=== PATIENT | female | born 1995 | race Two or more races ===

== ENCOUNTER 2021-05-05 22:34 | Emergency (ER) | payer OTHER ==
[2021-05-05 22:42] VITALS: BP 148/76
[2021-05-05] MEDS ORDERED: KETOROLAC 15 MG/ML VIAL IVP STA (22:48)
[2021-05-05] MEDS ORDERED: METOCLOPRAMIDE 10 MG/2 ML VIAL IVP STA (22:48)
[2021-05-05] MEDS ORDERED: diphenhydrAMINE INJ 50 MG/ML VIAL IVP STA (22:49)
[2021-05-05] MEDS ORDERED: ACETAMINOPHEN 325 MG TABLET PO STA (22:49)
[2021-05-05 23:06] LABS: BILIRUBIN,URINE NEGATIVE (NEGATIVE); GLUCOSE, URINE (UA) NEGATIVE (NEGATIVE); KETONES,URINE (UA) NEGATIVE (NEGATIVE); LEUKOCYTE ESTERASE, URINE NEGATIVE (NEGATIVE); NITRITE,URINE NEGATIVE (NEGATIVE); OCCULT BLOOD,URINE NEGATIVE (NEGATIVE); PROTEIN,URINE NEGATIVE (NEGATIVE); UROBILINOGEN,URINE 0.2 (NORMAL) E.U./dL (NORMAL)
[2021-05-05 23:08] LABS: BASOPHILS % (AUTO) 0.2 %; EOSINOPHILS # (AUTO) 0.2 10^3/uL (0.0-0.7); EOSINOPHILS % (AUTO) 1.2 %; HCT - HEMATOCRIT 43.9 % (37.0-47.0); HGB - HEMOGLOBIN 14.3 g/dL (12.0-16.0); LYMPHOCYTES # (AUTO) 3.6 10^3/uL (1.5-3.5); LYMPHOCYTES % (AUTO) 27.6 %; MEAN CORPUSCULAR HEMOGLOBIN 27.7 pg (27.0-31.0); MEAN CORPUSCULAR HGB CONC 32.6 g/dL (32.0-36.0); MEAN CORPUSCULAR VOLUME 85.1 fL (81.0-99.0); MEAN PLATELET VOLUME 11.7 fL (7.9-10.8); MONOCYTES # (AUTO) 1.1 10^3/uL (0.0-1.0); MONOCYTES % (AUTO) 8.2 %; NEUTROPHILS # (AUTO) 8.1 10^3/uL (1.5-6.6); NEUTROPHILS % (AUTO) 62.6 %; PLT - PLATELET COUNT 200 10^3/uL (130-450); RED BLOOD COUNT 5.16 10^6/uL (4.20-5.40); RED CELL DISTRIBUTION WIDTH 13.2 % (12.0-15.0); WHITE BLOOD COUNT 12.9 x10^3/uL (4.8-10.8)
[2021-05-05 23:10] LABS: CLARITY,URINE CLEAR (CLEAR); HCG UR QUAL NEGATIVE
[2021-05-05 23:19] LABS: ALBUMIN 4.6 g/dL (3.2-5.5); ALBUMIN/GLOBULIN RATIO 1.5 (1.0-2.2); BILIRUBIN,TOTAL 0.8 mg/dL (0.2-1.0); CALCIUM 9.5 mg/dL (8.5-10.3); CREATININE 0.6 mg/dL (0.4-1.0); POTASSIUM 3.7 mmol/L (3.5-5.0); TOTAL PROTEIN 7.6 g/dL (6.7-8.2)
--- NOTE | 2021-05-06 00:13 | ED Physician Documentation ---
History of Present Illness - Stated complaint Stated Complaint: BODY SHAKES,NAUSEA,HEADACHE - Chief complaint Chief Complaint: Abd Pain - History obtained from History obtained from: Patient - Additonal information Additional information: 26-year-old woman, previously healthy presents with body aches, shaking, headache, nausea, and insomnia for the past 3 days as well as suprapubic discomfort and dysuria. Denies fevers. Patient states she recently moved to new home and has been under stress. Review of Systems Ten Systems: 10 systems reviewed and negative Constitutional: reports: Myalgias, Fatigue. denies: Fever, Chills Neurologic: reports: Headache Psychiatric: reports: Insomnia PD PAST MEDICAL HISTORY - Past Medical History Past Medical History: No - Allergies Allergies/Adverse Reactions: Allergies Allergy/AdvReac Type Severity Reaction Status Date / Time No Known Drug Allergies Allergy Verified 05/05/21 22:39 - Social History Does the pt smoke?: No Smoking Status: Never smoker Does the pt have substance abuse?: No - Immunizations Immunizations are current?: No - POLST Patient has POLST: No PD ED PE NORMAL - Vitals Vital signs reviewed: Yes - General General: Alert and oriented X 3, No acute distress, Well developed/nourished - HEENT HEENT: Atraumatic, PERRL, EOMI - Neck Neck: Supple, no meningeal sign - Cardiac Cardiac: RRR - Respiratory Respiratory: No respiratory distress, Clear bilaterally - Abdomen Abdomen: Non tender, Non distended - Derm Derm: Normal color, Warm and dry - Extremities Extremities: No deformity - Neuro Neuro: Alert and oriented X 3 - Psych Psych: Normal mood, Normal affect Results - Vitals Vitals: Vital Signs - 24 hr 05/05/21 05/06/21 22:39 00:31 Temperature 36.9 C 36.9 C Heart Rate 73 73 Respiratory 16 16 Rate Blood Pressure 148/76 H 148/76 H O2 Saturation 100 100 Oxygen O2 Source Room air - Labs Labs: Laboratory Tests 05/05/21 05/05/21 05/05/21 22:59 22:59 22:59 WBC 12.9 H RBC 5.16 Hgb 14.3 Hct 43.9 MCV 85.1 MCH 27.7 MCHC 32.6 RDW 13.2 Plt Count 200 MPV 11.7 H Neut # (Auto) 8.1 H Lymph # (Auto) 3.6 H [place] # (Auto) 1.1 H Eos # (Auto) 0.2 Baso # (Auto) 0.0 Absolute Nucleated RBC 0.00 Nucleated RBC % 0.0 Sodium 136 Potassium 3.7 Chloride 101 Carbon Dioxide 23 Anion Gap 12.0 BUN 14 Creatinine 0.6 Estimated GFR (MDRD) 122 Glucose 97 Calcium 9.5 Total Bilirubin 0.8 AST 19 ALT 20 Alkaline Phosphatase 47 Total Protein 7.6 Albumin 4.6 Globulin 3.0 Albumin/Globulin Ratio 1.5 Lipase 25 Urine Color YELLOW Urine Clarity CLEAR Urine pH 6.0 Ur Specific [place] 1.020 Urine Protein NEGATIVE Urine Glucose (UA) NEGATIVE Urine Ketones NEGATIVE Urine Occult Blood NEGATIVE Urine Nitrite NEGATIVE Urine Bilirubin NEGATIVE Urine Urobilinogen 0.2 (NORMAL) Ur Leukocyte Esterase NEGATIVE Ur Microscopic Review NOT INDICATED Urine Culture Comments NOT INDICATED Urine HCG, Qual NEGATIVE PD MEDICAL DECISION MAKING - ED course ED course: 26-year-old man presents with insomnia for the past 3 nights as well as nonspecific symptoms. Her work-up in the emergency department is unremarkable. Advised to follow-up with [facility]. Return precautions given. Departure - Departure Disposition: 01 Home, Self Care Clinical Impression: Body aches, Insomnia, Nausea, Headache Condition: Good Instructions: ED Insomnia Comments: You were seen in the emergency department for nausea, insomnia, body shaking, headache, and pain with urination. Your urine test was normal. You are not . You have no emergent findings on your labwork. Please follow up with [facility] this week and return to the emergency department if you have new or worsening symptoms or other concerns. Discharge Date/Time: 05/06/21 00:50
== END 2021-05-06 00:50 | disposition home or self-care (01) ==
LOC: ED 22:34
DX: R11.0 Nausea (principal); R51.9 Headache, unspecified; G47.00 Insomnia, unspecified; R52 Pain, unspecified
CPT/HCPCS: 36415; 80053; 81003; 81025; 83690; 85025; 96374; 96375; 99282; 99283; A9270; J1200; J2765; 81001; 87086

== ENCOUNTER 2021-05-18 13:16 | Emergency (ER) | payer OTHER ==
--- NOTE | 2021-05-18 14:01 | ED Physician Documentation ---
History of Present Illness - Stated complaint Stated Complaint: DIZZYNESS - Chief complaint Chief Complaint: Abd Pain - History obtained from History obtained from: Patient - History of Present Illness Timing: Today Pain level max: 0 Pain level now: 0 - Additonal information Additional information: Patient is a 26-year-old female who presents to the emergency department stating she had blood in the stool x2 over the past 2 weeks. Today she felt lightheaded and dizzy. Near syncopal. She felt like her heart was racing. She now feels normal. Nothing made it better or worse. She states she feels her stomach "moving a lot". Denies any diarrhea or constipation. No nausea or vomiting. Denies any possibility of . Patient is on any blood thinners. Has never had similar symptoms. No recent travel. No antibiotics. No abdominal pain. Review of Systems Constitutional: denies: Fever, Chills Throat: denies: Sore throat Cardiac: denies: Palpitations Respiratory: denies: Cough GI: denies: Abdominal Pain, Vomiting, Diarrhea, Hematemesis Musculoskeletal: denies: Neck pain, Back pain Neurologic: denies: Headache PD PAST MEDICAL HISTORY - Past Medical History Past Medical History: No - Past Surgical History Past Surgical History: No - Allergies Allergies/Adverse Reactions: Allergies Allergy/AdvReac Type Severity Reaction Status Date / Time No Known Drug Allergies Allergy Verified 05/18/21 13:31 - Living Situation Living Situation: reports: With family Living Arrangement: reports: At home - Social History Does the pt smoke?: No Smoking Status: Never smoker Does the pt have substance abuse?: No - Family History Family history: reports: Non contributory - Immunizations Immunizations are current?: No - POLST Patient has POLST: No PD ED PE NORMAL - Vitals Vital signs reviewed: Yes - General General: Alert and oriented X 3, No acute distress - HEENT HEENT: PERRL, Moist mucous membranes, Other (Normal conjunctiva) - Neck Neck: Supple, no meningeal sign - Cardiac Cardiac: RRR, No murmur, Strong equal pulses - Respiratory Respiratory: No respiratory distress, Clear bilaterally - Abdomen Abdomen: Soft, Non tender, Non distended - Female Female : Pt declined - Derm Derm: Warm and dry - Extremities Extremities: No edema, No calf tenderness / cord - Neuro Neuro: Alert and oriented X 3 - Psych Psych: Normal mood, Normal affect Results - Vitals Vitals: Vital Signs - 24 hr 05/18/21 05/18/21 05/18/21 13:27 16:09 16:24 Temperature 36.4 C L 36.9 C Heart Rate 82 88 151 H Respiratory 16 16 42 H Rate Blood Pressure 130/80 107/65 O2 Saturation 100 100 93 Oxygen O2 Source Room air - EKG (time done) 1335 Rate: Rate (enter#) (78) Rhythm: NSR [place]: Normal Intervals: Normal [place] QRS: Normal Ischemia: Normal ST segments - Labs Labs: Laboratory Tests 05/18/21 05/18/21 05/18/21 14:17 14:17 14:51 WBC 8.1 RBC 4.74 Hgb 13.4 Hct 40.1 MCV 84.6 MCH 28.3 MCHC 33.4 RDW 13.2 Plt Count 175 MPV 11.5 H Neut # (Auto) 5.9 Lymph # (Auto) 1.5 [place] # (Auto) 0.6 Eos # (Auto) 0.1 Baso # (Auto) 0.0 Absolute Nucleated RBC 0.00 Nucleated RBC % 0.0 Sodium 137 Potassium 4.0 Chloride 103 Carbon Dioxide 26 Anion Gap 8.0 BUN 14 Creatinine 0.6 Estimated GFR (MDRD) 122 Glucose 107 H Calcium 9.0 Total Bilirubin 0.5 AST 25 ALT 40 Alkaline Phosphatase 42 Total Protein 7.5 Albumin 4.2 Globulin 3.3 Albumin/Globulin Ratio 1.3 Lipase 22 Urine Color Cancelled Urine Clarity Cancelled Urine pH Cancelled Ur Specific [place] Cancelled Urine Protein Cancelled Urine Glucose (UA) Cancelled Urine Ketones Cancelled Urine Occult Blood Cancelled Urine Nitrite Cancelled Urine Bilirubin Cancelled Urine Urobilinogen Cancelled Ur Leukocyte Esterase Cancelled Ur Microscopic Review Cancelled Urine Culture Comments Cancelled Urine HCG, Qual 05/18/21 14:51 WBC RBC Hgb Hct MCV MCH MCHC RDW Plt Count MPV Neut # (Auto) Lymph # (Auto) [place] # (Auto) Eos # (Auto) Baso # (Auto) Absolute Nucleated RBC Nucleated RBC % Sodium Potassium Chloride Carbon Dioxide Anion Gap BUN Creatinine Estimated GFR (MDRD) Glucose Calcium Total Bilirubin AST ALT Alkaline Phosphatase Total Protein Albumin Globulin Albumin/Globulin Ratio Lipase Urine Color YELLOW Urine Clarity CLEAR Urine pH 6.0 Ur Specific [place] 1.020 Urine Protein NEGATIVE Urine Glucose (UA) NEGATIVE Urine Ketones NEGATIVE Urine Occult Blood TRACE-INTA Urine Nitrite NEGATIVE Urine Bilirubin NEGATIVE Urine Urobilinogen 0.2 (NORMAL) Ur Leukocyte Esterase NEGATIVE Ur Microscopic Review NOT INDICATED Urine Culture Comments NOT INDICATED Urine HCG, Qual NEGATIVE PD MEDICAL DECISION MAKING - ED course Complexity details: reviewed results, re-evaluated patient, considered differential, d/w patient ED course: Patient is well-appearing, nontoxic. Afebrile. No significant lab abnormalities. No significant findings on EKG or telemetry. Appears to be hemodynamically stable. Tolerating p.o. without difficulty. We will have her follow-up with her doctor for further care. Patient counseled regarding signs and symptoms for which I believe and urgent re-evaluation would be necessary. Patient with good understanding of and agreement to plan and is comfortable going home at this time This document was made in part using voice recognition software. While efforts are made to proofread this document, sound alike and grammatical errors may occur. Abdomen remains soft, nontender nondistended on serial exam. Departure - Departure Disposition: 01 Home, Self Care Clinical Impression: Blood in stool, Near syncope Condition: Good Instructions: ED Hematochezia Stable, ED Near Syncope Unkn Follow-Up: your,doctor in 1 week for repeat evaluation [Other] Comments: Your testing does not show any acute abnormalities today. Your EKG is normal. Your blood counts are normal. Please follow-up with your doctor for further care. Discharge Date/Time: 05/18/21 16:28
[2021-05-18 14:21] LABS: BASOPHILS % (AUTO) 0.4 %; EOSINOPHILS # (AUTO) 0.1 10^3/uL (0.0-0.7); EOSINOPHILS % (AUTO) 0.9 %; HCT - HEMATOCRIT 40.1 % (37.0-47.0); HGB - HEMOGLOBIN 13.4 g/dL (12.0-16.0); LYMPHOCYTES # (AUTO) 1.5 10^3/uL (1.5-3.5); LYMPHOCYTES % (AUTO) 18.7 %; MEAN CORPUSCULAR HEMOGLOBIN 28.3 pg (27.0-31.0); MEAN CORPUSCULAR HGB CONC 33.4 g/dL (32.0-36.0); MEAN CORPUSCULAR VOLUME 84.6 fL (81.0-99.0); MEAN PLATELET VOLUME 11.5 fL (7.9-10.8); MONOCYTES # (AUTO) 0.6 10^3/uL (0.0-1.0); MONOCYTES % (AUTO) 7.1 %; NEUTROPHILS # (AUTO) 5.9 10^3/uL (1.5-6.6); NEUTROPHILS % (AUTO) 72.4 %; PLT - PLATELET COUNT 175 10^3/uL (130-450); RED BLOOD COUNT 4.74 10^6/uL (4.20-5.40); RED CELL DISTRIBUTION WIDTH 13.2 % (12.0-15.0); WHITE BLOOD COUNT 8.1 x10^3/uL (4.8-10.8)
[2021-05-18 15:10] LABS: BILIRUBIN,URINE NEGATIVE (NEGATIVE); GLUCOSE, URINE (UA) NEGATIVE (NEGATIVE); KETONES,URINE (UA) NEGATIVE (NEGATIVE); LEUKOCYTE ESTERASE, URINE NEGATIVE (NEGATIVE); NITRITE,URINE NEGATIVE (NEGATIVE); OCCULT BLOOD,URINE TRACE-INTA (NEGATIVE); PROTEIN,URINE NEGATIVE (NEGATIVE); UROBILINOGEN,URINE 0.2 (NORMAL) E.U./dL (NORMAL)
[2021-05-18 15:17] LABS: ALBUMIN 4.2 g/dL (3.2-5.5); ALBUMIN/GLOBULIN RATIO 1.3 (1.0-2.2); BILIRUBIN,TOTAL 0.5 mg/dL (0.2-1.0); CREATININE 0.6 mg/dL (0.4-1.0); TOTAL PROTEIN 7.5 g/dL (6.7-8.2)
[2021-05-18 15:20] LABS: CLARITY,URINE CLEAR (CLEAR); HCG UR QUAL NEGATIVE
[2021-05-18 16:09] VITALS: BP 107/65
== END 2021-05-18 16:28 | disposition home or self-care (01) ==
LOC: ED 13:16
DX: K92.1 Melena (principal); R55 Syncope and collapse
CPT/HCPCS: 36415; 80053; 81001; 81003; 81025; 83690; 85025; 87086; 93005; 99283; 99284

== ENCOUNTER 2021-08-07 10:22 | Emergency (ER) | payer OTHER ==
--- NOTE | 2021-08-07 10:54 | XRAY Report ---
PROCEDURE: Chest 1 View X-Ray INDICATIONS: Chest pain TECHNIQUE: One view of the chest was acquired. COMPARISON: None. FINDINGS: Surgical changes and devices: None. Lungs and pleura: No pleural effusions or pneumothorax. Lungs are clear. Mediastinum: Mediastinal contours appear normal. Heart size is normal. Bones and chest wall: No suspicious bony lesions. Overlying soft tissues appear unremarkable. IMPRESSION: No acute cardiopulmonary process demonstrated radiographically. Reviewed by: Juan Francisco Dyer MD on 08/07/2021 10:52 AM [facility] Approved by: Juan Francisco Dyer MD on 08/07/2021 10:52 AM [facility] Station ID: [id number]
[2021-08-07 10:56] LABS: BASOPHILS % (AUTO) 0.2 %; EOSINOPHILS # (AUTO) 0.1 10^3/uL (0.0-0.7); EOSINOPHILS % (AUTO) 1.5 %; HCT - HEMATOCRIT 40.3 % (37.0-47.0); HGB - HEMOGLOBIN 13.4 g/dL (12.0-16.0); LYMPHOCYTES # (AUTO) 1.9 10^3/uL (1.5-3.5); LYMPHOCYTES % (AUTO) 21.6 %; MEAN CORPUSCULAR HEMOGLOBIN 28.3 pg (27.0-31.0); MEAN CORPUSCULAR HGB CONC 33.3 g/dL (32.0-36.0); MEAN CORPUSCULAR VOLUME 85.2 fL (81.0-99.0); MEAN PLATELET VOLUME 10.9 fL (7.9-10.8); MONOCYTES # (AUTO) 0.6 10^3/uL (0.0-1.0); MONOCYTES % (AUTO) 6.7 %; NEUTROPHILS # (AUTO) 6.1 10^3/uL (1.5-6.6); NEUTROPHILS % (AUTO) 69.4 %; PLT - PLATELET COUNT 185 10^3/uL (130-450); RED BLOOD COUNT 4.73 10^6/uL (4.20-5.40); RED CELL DISTRIBUTION WIDTH 13.3 % (12.0-15.0); WHITE BLOOD COUNT 8.7 x10^3/uL (4.8-10.8)
--- NOTE | 2021-08-07 10:57 | ED Physician Documentation ---
PD HPI CHEST PAIN - Stated complaint Stated Complaint: CHEST PX - Chief complaint Chief Complaint: Cardiac - History obtained from History obtained from: Patient - History of Present Illness Timing - onset: How many weeks ago (2) Timing - onset during: Rest Timing - duration: Weeks (2) Timing - details: Gradual onset, Other (states it lasts most of the day) Pain level max: 4 Pain level now: 1 Quality: Aching (dull, aching) Location: Left chest, Left shoulder/arm Radiation: Left upper extremity Improved by: Rest Associated symptoms: No: Shortness of air, Diaphoresis, Nausea, Vomiting, Feeling faint / dizzy, General Weakness, Palpitations, Cough Similar symptoms before: Has not had sx before Recently seen: Not recently seen - Additional information Additional information: 26-year-old female presents to the emergency department with left-sided chest pain ongoing for the past several weeks. Occasionally radiates to the left arm and feels like there is a band on her arm. Occasionally it radiates to the left upper back and occasionally to her left neck. Nothing makes it better or worse. No change with exertion. No change with movement, inspiration. She has not taken anything for this. Review of Systems Constitutional: denies: Fever, Chills Nose: denies: Rhinorrhea / runny nose, Congestion GI: denies: Vomiting, Diarrhea Skin: denies: Rash Musculoskeletal: denies: Neck pain, Back pain Neurologic: denies: Headache PD PAST MEDICAL HISTORY - Past Medical History Past Medical History: No - Past Surgical History Past Surgical History: No - Allergies Allergies/Adverse Reactions: Allergies Allergy/AdvReac Type Severity Reaction Status Date / Time No Known Drug Allergies Allergy Verified 08/07/21 10:29 - Living Situation Living Situation: reports: With family Living Arrangement: reports: At home - Social History Does the pt smoke?: No Smoking Status: Never smoker Does the pt drink ETOH?: No Does the pt have substance abuse?: No - Family History Family history: reports: Non contributory - Immunizations Immunizations are current?: No - POLST Patient has POLST: No PD ED PE NORMAL - Vitals Vital signs reviewed: Yes - General General: Alert and oriented X 3, No acute distress, Well developed/nourished - HEENT HEENT: PERRL - Neck Neck: Supple, no meningeal sign - Cardiac Cardiac: RRR, No murmur, Strong equal pulses - Respiratory Respiratory: No respiratory distress, Clear bilaterally - Abdomen Abdomen: Soft, Non tender, Non distended - Derm Derm: Warm and dry - Extremities Extremities: No edema, No calf tenderness / cord - Neuro Neuro: Alert and oriented X 3 - Psych Psych: Normal mood, Normal affect Results - Vitals Vitals: Vital Signs - 24 hr 08/07/21 08/07/21 10:25 12:30 Temperature 36.2 C L Heart Rate 92 90 Respiratory 16 12 Rate Blood Pressure 149/75 H 118/75 O2 Saturation 100 100 Oxygen O2 Source Room air - EKG (time done) 1034 Rate: Rate (enter#) (84) Rhythm: NSR [place]: Normal Intervals: Normal [place] QRS: Normal Ischemia: Normal ST segments - Labs Labs: Laboratory Tests 08/07/21 08/07/21 08/07/21 10:50 10:50 10:50 WBC 8.7 RBC 4.73 Hgb 13.4 Hct 40.3 MCV 85.2 MCH 28.3 MCHC 33.3 RDW 13.3 Plt Count 185 MPV 10.9 H Neut # (Auto) 6.1 Lymph # (Auto) 1.9 [place] # (Auto) 0.6 Eos # (Auto) 0.1 Baso # (Auto) 0.0 Absolute Nucleated RBC 0.00 Nucleated RBC % 0.0 Sodium 137 Potassium 3.9 Chloride 101 Carbon Dioxide 28 Anion Gap 8.0 BUN 13 Creatinine 0.7 Estimated GFR (MDRD) 102 Glucose 89 Calcium 9.2 Total Bilirubin 0.5 AST 21 ALT 33 Alkaline Phosphatase 48 Troponin I High Sens 2.5 Total Protein 7.0 Albumin 4.2 Globulin 2.8 Albumin/Globulin Ratio 1.5 Lipase 40 - Rads (name of study) cxr Radiology: Final report received, EMP read contemporaneously, See rad report ct angio chest Radiology: Final report received, EMP read contemporaneously, See rad report PD MEDICAL DECISION MAKING - ED course Complexity details: reviewed results, re-evaluated patient, considered differential (No ST elevation HI, no aortic dissection, no PE, no tension pneumothorax, no aortic aneurysm), d/w patient ED course: 26-year-old female with chest pain. Unclear etiology. No acute findings on laboratory testing, EKG, chest x-ray or CT angiogram. Patient feels better after Tylenol. We will continue supportive care and have her follow-up with her doctor for further care. Patient counseled regarding signs and symptoms for which I believe and urgent re-evaluation would be necessary. Patient with good understanding of and agreement to plan and is comfortable going home at this time This document was made in part using voice recognition software. While efforts are made to proofread this document, sound alike and grammatical errors may occur. Departure - Departure Disposition: 01 Home, Self Care Clinical Impression: Chest pain Qualifiers: Chest pain type: unspecified Qualified Code(s): R07.9 - Chest pain, unspecified Condition: Good Instructions: ED Chest Pain Atypical Unkn Cause Follow-Up: Maritza Demarco MD [Primary Care Provider] - Within 1 week Comments: Please follow-up with your doctor for further care. Return if you worsen. Your testing is all normal today. There is no evidence of blood clots, aortic dissection, heart attacks. I would continue Motrin and Tylenol as needed for pain. Discharge Date/Time: 08/07/21 13:07
[2021-08-07 11:14] LABS: ALBUMIN 4.2 g/dL (3.2-5.5); ALBUMIN/GLOBULIN RATIO 1.5 (1.0-2.2); BILIRUBIN,TOTAL 0.5 mg/dL (0.2-1.0); CALCIUM 9.2 mg/dL (8.5-10.3); CREATININE 0.7 mg/dL (0.4-1.0); POTASSIUM 3.9 mmol/L (3.5-5.0)
[2021-08-07] MEDS ORDERED: ACETAMINOPHEN 325 MG TABLET PO STA (12:08)
[2021-08-07] MEDS ORDERED: IOVERSOL 320 100 ML VIAL IVP ONE ×2 (12:17→15:38)
[2021-08-07 12:52] VITALS: BP 118/75
--- NOTE | 2021-08-07 12:53 | CT Report ---
PROCEDURE: CT chest angiogram with and without contrast INDICATIONS: L chest/back/arm pain CONTRAST: IV CONTRAST: Optiray 320 ml: 80 PO CONTRAST: *NO PO CONTRAST TECHNIQUE: Helical axial CT of the chest was obtained before and after contrast administration utiliz ing an angiographic protocol and reformatted in multiple planes. For radiation dose reduction, the fo llowing was used: automated exposure control, adjustment of mA and/or kV according to patient size. COMPARISON: None FINDINGS: Image quality: Excellent. Pulmonary arteries: Pulmonary arteries are normal in size, and demonstrate no intraluminal filling d efects to suggest central pulmonary embolism. Lungs and pleura: Lungs are clear. No pleural effusions or pneumothorax. Central and peripheral ai rways are patent. Mediastinum: Heart size is normal, without pericardial effusion. No mediastinal or hilar adenopathy . Thoracic aorta is normal in caliber and enhancement. Esophagus is normal in caliber, without hiat al hernia. Bones and chest wall: No suspicious bony lesions. Ribs and thoracic spine appear intact throughout. No axillary or supraclavicular adenopathy. The thyroid is normal in size and there are no incident al findings. Abdomen: Visualized upper abdominal solid organs appear normal in the early arterial phase of enhanc ement. IMPRESSION: 1. Normal CT angiogram without pulmonary embolism, aortic dissection or aneurysm. 2. Normal CT of the chest Reviewed by: Sandeep Crane MD on 08/07/2021 11:52 AM [facility] Approved by: Sandeep Crane MD on 08/07/2021 11:52 AM [facility] Station ID: [id number]
== END 2021-08-07 13:07 | disposition home or self-care (01) ==
LOC: ED 10:22
DX: R07.9 Chest pain, unspecified (principal)
CPT/HCPCS: 36415; 71045; 71275; 80053; 83690; 84484; 85025; 93005; 99284; A9270; Q9967

== ENCOUNTER 2021-09-20 16:26 | Outpatient (CLI) | payer OTHER | END 2021-09-20 16:27 | disposition critical access hospital (66) | LOC: EMS 16:26 | DX: R00.2 Palpitations (principal); R07.9 Chest pain, unspecified | CPT/HCPCS: A0425; A0429 ==

== ENCOUNTER 2021-09-20 16:44 | Emergency (ER) | payer OTHER ==
[2021-09-20 17:03] LABS: BASOPHILS % (AUTO) 0.3 %; EOSINOPHILS # (AUTO) 0.2 10^3/uL (0.0-0.7); EOSINOPHILS % (AUTO) 1.7 %; HCT - HEMATOCRIT 38.4 % (37.0-47.0); HGB - HEMOGLOBIN 12.9 g/dL (12.0-16.0); LYMPHOCYTES # (AUTO) 2.5 10^3/uL (1.5-3.5); LYMPHOCYTES % (AUTO) 26.1 %; MEAN CORPUSCULAR HEMOGLOBIN 28.4 pg (27.0-31.0); MEAN CORPUSCULAR HGB CONC 33.6 g/dL (32.0-36.0); MEAN CORPUSCULAR VOLUME 84.4 fL (81.0-99.0); MONOCYTES # (AUTO) 0.8 10^3/uL (0.0-1.0); MONOCYTES % (AUTO) 7.8 %; NEUTROPHILS # (AUTO) 6.1 10^3/uL (1.5-6.6); NEUTROPHILS % (AUTO) 63.7 %; PLT - PLATELET COUNT 200 10^3/uL (130-450); RED BLOOD COUNT 4.55 10^6/uL (4.20-5.40); RED CELL DISTRIBUTION WIDTH 13.1 % (12.0-15.0); WHITE BLOOD COUNT 9.6 x10^3/uL (4.8-10.8)
[2021-09-20 17:17] LABS: ALBUMIN 4.1 g/dL (3.2-5.5); ALBUMIN/GLOBULIN RATIO 1.4 (1.0-2.2); BILIRUBIN,TOTAL 0.6 mg/dL (0.2-1.0); CALCIUM 8.9 mg/dL (8.5-10.3); CREATININE 0.9 mg/dL (0.4-1.0); POTASSIUM 3.5 mmol/L (3.5-5.0); TOTAL PROTEIN 7.1 g/dL (6.7-8.2)
[2021-09-20] MEDS ORDERED: SODIUM CHLORIDE 0.9% 1,000 ML IV STA (17:17)
--- NOTE | 2021-09-20 17:20 | ED Physician Documentation ---
History of Present Illness - Stated complaint Stated Complaint: CP - Chief complaint Chief Complaint: Cardiac - Additonal information Additional information: 26-year-old female presents emergency department for evaluation of near syncope palpitations and left-sided chest pain. She reports that over the last 1 to 2 months she has had a few episodes where she begins to feel a racing heart and begin to develop tunnel vision and feels as though she is going to . She has not had any fainting episodes. She had one just prior to arrival today while at work. Denies that she was stressed, anxious or upset. Was seen in mid July for left-sided chest pain and at that time had an unremarkable CT angio of her chest. Patient denies any oral hormone contraceptive use. She takes no prescribed medications or vitamins. No recent travel. She denies chest pain or shortness of air right now though is anxious and upset about the near fainting episode. Did transport her here and noted that she did have runs of sinus tachycardia up into the 130s. Review of Systems Constitutional: denies: Fever, Chills Eyes: reports: Loss of vision Ears: reports: Reviewed and negative Nose: reports: Reviewed and negative Throat: reports: Reviewed and negative Cardiac: reports: Palpitations. denies: Pedal edema, Calf pain Respiratory: reports: Reviewed and negative GI: reports: Reviewed and negative : reports: Reviewed and negative Neurologic: reports: Near syncope. denies: Generalized weakness, Focal weakness, Headache, Head injury, LOC PD PAST MEDICAL HISTORY - Past Medical History Past Medical History: No - Past Surgical History Past Surgical History: No - Present Medications Home Medications: Ambulatory Orders Medication Instructions Recorded Confirmed Metoprolol Tartrate [Lopressor] 25 mg PO DAILY #30 tablet 09/20/21 - Allergies Allergies/Adverse Reactions: Allergies Allergy/AdvReac Type Severity Reaction Status Date / Time No Known Drug Allergies Allergy Verified 09/20/21 16:53 - Social History Does the pt smoke?: No Smoking Status: Never smoker Does the pt drink ETOH?: No Does the pt have substance abuse?: No - Immunizations Immunizations are current?: No - POLST Patient has POLST: No PD ED PE NORMAL - General General: Alert and oriented X 3, No acute distress, Well developed/nourished - HEENT HEENT: PERRL - Neck Neck: Supple, no meningeal sign, No adenopathy - Cardiac Cardiac: RRR (Mild sinus tachycardia noted on the monitor at a rate of 108.), No murmur, No gallop, No rub, Strong equal pulses, Other - Respiratory Respiratory: No respiratory distress, Clear bilaterally - Abdomen Abdomen: Normal bowel sounds, Soft, Non tender - Back Back: No CVA TTP, No spinal TTP - Derm Derm: Normal color, Warm and dry, No rash - Extremities Extremities: No deformity - Neuro Neuro: Alert and oriented X 3 Eye Opening: Spontaneous Motor: Obeys Commands Verbal: Oriented GCS Score: 15 - Psych Psych: Normal mood Results - Vitals Vitals: Vital Signs - 24 hr 09/20/21 09/20/21 09/20/21 16:50 17:47 17:48 Temperature 36.3 C L Heart Rate 90 94 Heart Rate [ 104 H Sitting] Heart Rate [ 96 Standing] Heart Rate [ 108 H Supine] Respiratory 18 18 Rate Blood Pressure 150/101 H 137/88 H Blood Pressure 152/93 H [Sitting] Blood Pressure 150/93 H [Standing] Blood Pressure 149/88 H [Supine] O2 Saturation 99 100 09/20/21 09/20/21 19:15 19:50 Temperature Heart Rate 81 84 Heart Rate [ Sitting] Heart Rate [ Standing] Heart Rate [ Supine] Respiratory 14 16 Rate Blood Pressure 137/96 H 136/88 H Blood Pressure [Sitting] Blood Pressure [Standing] Blood Pressure [Supine] O2 Saturation 100 99 Oxygen O2 Source Room air - EKG (time done) 1648 Rate: Rate (enter#) (95) Rhythm: NSR [place]: Normal Intervals: Normal [place] QRS: Normal Ischemia: Normal ST segments Compare to prior EKG: Unchanged from prior EKG Computer interpretation: Agree with computer - Labs Labs: Laboratory Tests 09/20/21 09/20/21 09/20/21 16:58 16:58 16:58 WBC 9.6 RBC 4.55 Hgb 12.9 Hct 38.4 MCV 84.4 MCH 28.4 MCHC 33.6 RDW 13.1 Plt Count 200 MPV 11.0 H Neut # (Auto) 6.1 Lymph # (Auto) 2.5 [place] # (Auto) 0.8 Eos # (Auto) 0.2 Baso # (Auto) 0.0 Absolute Nucleated RBC 0.00 Nucleated RBC % 0.0 Sodium 134 L Potassium 3.5 Chloride 102 Carbon Dioxide 25 Anion Gap 7.0 BUN 16 Creatinine 0.9 Estimated GFR (MDRD) 76 L Glucose 125 H Calcium 8.9 Total Bilirubin 0.6 AST 24 ALT 36 Alkaline Phosphatase 46 Troponin I High Sens < 2.3 L Total Protein 7.1 Albumin 4.1 Globulin 3.0 Albumin/Globulin Ratio 1.4 Lipase 27 TSH 09/20/21 16:58 WBC RBC Hgb Hct MCV MCH MCHC RDW Plt Count MPV Neut # (Auto) Lymph # (Auto) [place] # (Auto) Eos # (Auto) Baso # (Auto) Absolute Nucleated RBC Nucleated RBC % Sodium Potassium Chloride Carbon Dioxide Anion Gap BUN Creatinine Estimated GFR (MDRD) Glucose Calcium Total Bilirubin AST ALT Alkaline Phosphatase Troponin I High Sens Total Protein Albumin Globulin Albumin/Globulin Ratio Lipase TSH 1.85 - Rads (name of study) cxr Radiology: EMP read indepedently (No acute cardiopulmonary process) PD MEDICAL DECISION MAKING - ED course Complexity details: reviewed old records, reviewed results, re-evaluated patient, considered differential, d/w patient ED course: 26-year-old female presents to the emergency department via EMS for near syncope. She reports that for the last 2 months she will begin to develop palpitations and a racing heart in which she begins to feel as though she will pass out. She has had 4-5 episodes of this over the last month. This is associated with some chest pain. Seen in mid July for similar and had a negative CT pulmonary angio. In route with EMS that she was noted to have brief episodes of sinus tachycardia up to the 160s. While here in the emergency department she was on the monitor and typically did have a resting heart rate that was in the 80s and low 100s though on 2 brief episodes she did develop a spontaneous tachycardia up to the 150s that lasted just a few seconds. Screening labs were unremarkable. Negative troponin. Thyroid was negative. Patient was given a low dose of metoprolol and observe for a few hours with no further tachyarrhythmia. She was then ambulated in the duenas and tolerated well without the development of significant tachycardia. The findings were discussed with the patient that she would benefit from referral to a inside sales territory manager where she would likely require a Holter monitor or electrophysiology studies. We have elected to start her on a low-dose beta- noam as the symptoms are getting more frequent and recurrent. Emergent return precautions were discussed for worsening symptoms or any syncopal episodes Departure - Departure Disposition: 01 Home, Self Care Clinical Impression: Syncope, near, Tachycardia with heart rate 141-160 beats per minute Condition: Stable Record reviewed to determine appropriate education?: Yes Instructions: Beta Noam, Tachycardia, ED Valsalva Maneuver Prescriptions: Metoprolol Tartrate [Lopressor] 25 mg PO DAILY #30 tablet Comments: Jen was seen today in the emergency department because you had a sensation that your heart was racing and you nearly fainted. While in route with the paramedics and briefly a few times here in the emergency department you were noted to have brief heart rate elevations up to almost 160. This was not sustained. However this can feel very uncomfortable in the moment when it is happening and a very fast heart rate if it persist for too long can make you feel as though you are going to faint. It seems that these episodes are becoming more frequent over the last few months. In order to help manage this and reduce the frequency with which they occur I am starting you on a low-dose medication called metoprolol. This is a beta-noam and it does help to slow your heart rate. However the cause for your heart rate rise is not clear. It is very important that you discuss this ED visit with your primary care doctor. You should be referred to a inside sales territory manager for further evaluation. They may elect to have you wear a Holter monitor where they would monitor your heart rate for a few days or a few weeks or conduct what are called electrophysiology studies. If you find that despite the metoprolol you continue to have near fainting episodes or a racing heart or develop chest pain or severe shortness of air then you are to return immediately to the emergency department. Use caution with the metoprolol the first few times you take it. It may make you feel somewhat faint or dizzy. Do not drive until you know how you tolerate it.
--- NOTE | 2021-09-20 17:21 | XRAY Report ---
PROCEDURE: Chest 1 View X-Ray INDICATIONS: Chest Pain TECHNIQUE: One view of the chest was acquired. COMPARISON: 08/07/2021 FINDINGS: Surgical changes and devices: None. Lungs and pleura: No pleural effusions or pneumothorax. Lungs are clear. Mediastinum: Mediastinal contours appear normal. Heart size is normal. Bones and chest wall: No suspicious bony lesions. Overlying soft tissues appear unremarkable. IMPRESSION: Stable examination of the chest without acute cardiopulmonary abnormalities or focal airspace disease . Reviewed by: Erik Brooks MD on 09/20/2021 5:20 PM PDT Approved by: Erik Brooks MD on 09/20/2021 5:20 PM PDT Station ID: [id number]
[2021-09-20] MEDS ORDERED: METOPROLOL TARTRATE 50 MG TABLET PO STA (17:45)
[2021-09-20 20:32] VITALS: BP 136/84
== END 2021-09-20 20:30 | disposition home or self-care (01) ==
LOC: EDUNIT# → ED 16:44
DX: R55 Syncope and collapse (principal); R00.0 Tachycardia, unspecified
CPT/HCPCS: 36415; 71045; 80053; 83690; 84443; 84484; 85025; 93005; 99283; 99284; A9270

== ENCOUNTER 2021-10-09 11:55 | Emergency (ER) | payer OTHER ==
[2021-10-09 12:01] VITALS: BP 136/90
[2021-10-09 12:17] LABS: BASOPHILS % (AUTO) 0.3 %; EOSINOPHILS # (AUTO) 0.1 10^3/uL (0.0-0.7); HCT - HEMATOCRIT 40.2 % (37.0-47.0); HGB - HEMOGLOBIN 13.3 g/dL (12.0-16.0); LYMPHOCYTES # (AUTO) 2.7 10^3/uL (1.5-3.5); LYMPHOCYTES % (AUTO) 23.5 %; MEAN CORPUSCULAR HEMOGLOBIN 28.2 pg (27.0-31.0); MEAN CORPUSCULAR HGB CONC 33.1 g/dL (32.0-36.0); MEAN CORPUSCULAR VOLUME 85.2 fL (81.0-99.0); MEAN PLATELET VOLUME 10.6 fL (7.9-10.8); MONOCYTES # (AUTO) 0.8 10^3/uL (0.0-1.0); MONOCYTES % (AUTO) 6.6 %; NEUTROPHILS # (AUTO) 7.6 10^3/uL (1.5-6.6); NEUTROPHILS % (AUTO) 66.3 %; PLT - PLATELET COUNT 214 10^3/uL (130-450); RED BLOOD COUNT 4.72 10^6/uL (4.20-5.40); RED CELL DISTRIBUTION WIDTH 12.8 % (12.0-15.0); WHITE BLOOD COUNT 11.4 x10^3/uL (4.8-10.8)
[2021-10-09 12:33] LABS: ALBUMIN/GLOBULIN RATIO 1.1 (1.0-2.2); BILIRUBIN,TOTAL 0.5 mg/dL (0.2-1.0); CALCIUM 9.2 mg/dL (8.5-10.3); CREATININE 0.6 mg/dL (0.4-1.0); POTASSIUM 4.2 mmol/L (3.5-5.0); TOTAL PROTEIN 7.6 g/dL (6.7-8.2)
--- NOTE | 2021-10-09 12:40 | ED Physician Documentation ---
History of Present Illness - Stated complaint Stated Complaint: CHEST PAIN - Chief complaint Chief Complaint: Cardiac - Additonal information Additional information: 26-year-old female presents emergency department for evaluation of chest pain and palpitations. She was seen by myself for similar number of weeks ago. At that time during her ER presentation she had been having intermittent palpitations for about 2 months. While here in the emergency department she had frequent runs of short sustained tachycardia up to 150. Given this she was placed on a low-dose beta-vernell. She is subsequently followed up with [facility] cardiology and is scheduled to have a Holter monitor placed on 25 October. Patient states that in general she is not taking the metoprolol though over the last 2 days she has had palpitations and now chest pain. She did take her metoprolol prior to coming to the ER this morning. She describes a sharp nonradiating but intermittent chest pain. It is not particularly associated with activity. It is not reproducible. No syncope. No dyspnea. Review of Systems Constitutional: reports: Reviewed and negative Nose: reports: Reviewed and negative Throat: reports: Reviewed and negative Cardiac: reports: Chest pain / pressure, Palpitations. denies: Pedal edema, Calf pain Respiratory: denies: Dyspnea, Cough GI: reports: Reviewed and negative : reports: Reviewed and negative Skin: reports: Reviewed and negative PD PAST MEDICAL HISTORY - Past Surgical History Past Surgical History: No - Present Medications Home Medications: Ambulatory Orders Medication Instructions Recorded Confirmed Metoprolol Tartrate [Lopressor] 25 mg PO DAILY #30 tablet 09/20/21 10/09/21 - Allergies Allergies/Adverse Reactions: Allergies Allergy/AdvReac Type Severity Reaction Status Date / Time No Known Drug Allergies Allergy Verified 10/09/21 11:59 - Social History Does the pt smoke?: No Smoking Status: Never smoker Does the pt drink ETOH?: No Does the pt have substance abuse?: No - Immunizations Immunizations are current?: No - POLST Patient has POLST: No PD ED PE NORMAL - General General: Alert and oriented X 3 - HEENT HEENT: Atraumatic - Neck Neck: Supple, no meningeal sign - Cardiac Cardiac: RRR, No murmur - Respiratory Respiratory: No respiratory distress - Abdomen Abdomen: Normal bowel sounds, Soft - Back Back: No CVA TTP - Derm Derm: Normal color, Warm and dry, No rash - Extremities Extremities: No deformity, No tenderness to palpate, Normal ROM s pain - Neuro Neuro: Alert and oriented X 3, employee health nurse 2-12 intact Eye Opening: Spontaneous Motor: Obeys Commands Verbal: Oriented GCS Score: 15 Results - Vitals Vitals: Vital Signs - 24 hr 10/09/21 11:59 Temperature 37.1 C Heart Rate 77 Respiratory 18 Rate Blood Pressure 136/90 H O2 Saturation 99 Oxygen O2 Source Room air - EKG (time done) 1202 Rate: Rate (enter#) (70) Rhythm: NSR [place]: Normal Intervals: Normal [place] QRS: Normal Ischemia: Normal ST segments Compare to prior EKG: Changed from prior EKG Computer interpretation: Agree with computer (Previous EKG with tachycardia. Now resolved.) - Labs Labs: Laboratory Tests 10/09/21 10/09/21 10/09/21 12:12 12:12 12:12 WBC 11.4 H RBC 4.72 Hgb 13.3 Hct 40.2 MCV 85.2 MCH 28.2 MCHC 33.1 RDW 12.8 Plt Count 214 MPV 10.6 Neut # (Auto) 7.6 H Lymph # (Auto) 2.7 [place] # (Auto) 0.8 Eos # (Auto) 0.1 Baso # (Auto) 0.0 Absolute Nucleated RBC 0.00 Nucleated RBC % 0.0 Sodium 136 Potassium 4.2 Chloride 101 Carbon Dioxide 27 Anion Gap 8.0 BUN 15 Creatinine 0.6 Estimated GFR (MDRD) 122 Glucose 97 Calcium 9.2 Total Bilirubin 0.5 AST 17 ALT 36 Alkaline Phosphatase 58 Troponin I High Sens < 2.3 L Total Protein 7.6 Albumin 4.0 Globulin 3.6 Albumin/Globulin Ratio 1.1 Lipase 28 PD MEDICAL DECISION MAKING - ED course Complexity details: reviewed results, re-evaluated patient, considered differential, d/w patient ED course: 26-year-old female presents emergency department with repeated concerns of palpitations and recurrent chest pain. Seen a number of weeks ago for similar by myself. At that time she had a number of brief runs of elevated tachycardia in the ER with heart rates up into the 150s. Patient had not been taking the metoprolol until her dose this morning. She is scheduled to have a Holter monitor placed on 25 October and has been seen and referred to [facility] cardiology. On exam her cardiopulmonary auscultation is unremarkable. EKG is nonischemic. Screening labs are again without worrisome findings. I think it is important she continue to follow through with a Holter monitor. She does not want to take the metoprolol unless she has palpitations which I think is reasonable and likely beneficial in helping diagnose the palpitations. She has no vital sign abnormality no syncope. Clinically this is not consistent with ACS. She is PERC negative. Emergent return precautions were discussed for severe shortness of air and fainting episodes Departure - Departure Disposition: Home, Self Care Clinical Impression: Chest pain Qualifiers: Chest pain type: unspecified Qualified Code(s): R07.9 - Chest pain, unspecified Condition: Stable Record reviewed to determine appropriate education?: Yes Instructions: ED Chest Pain NonCardiac Comments: Your screening EKG and labs today are again essentially normal. You are not having a heart attack. I think it is important you continue to follow-up with the referral for the Holter monitor. It is okay if you choose not to take the metoprolol unless you are having palpitations. Often palpitations and chest pain can cause anxiety which can simply worsen the symptoms and I suspect that is where you are at right now but the likelihood that you have a serious cardiac or pulmonary disorder is extremely unlikely given the recent testing. If at any point you have severe shortness of air, any fainting episodes, leg swelling then please return immediately to the ER for second evaluation
== END 2021-10-09 13:24 | disposition home or self-care (01) ==
LOC: ED 11:55
DX: R07.9 Chest pain, unspecified (principal); R00.2 Palpitations; R00.0 Tachycardia, unspecified
CPT/HCPCS: 36415; 80053; 83690; 84484; 85025; 93005; 99283; 99284

== ENCOUNTER 2021-12-20 19:27 | Emergency (ER) | payer OTHER ==
--- NOTE | 2021-12-20 19:53 | ED Physician Documentation ---
PD HPI FOCAL NEURO - Stated complaint Stated Complaint: HEADACHE - Chief complaint Chief Complaint: Neuro - History obtained from History obtained from: Patient - Additional information Additional information: Previously healthy 26-year-old woman presents with complaints of migratory [id number] sensation starting 3 days ago. It started in the scalp, moved to both sides, subsequently has had it migrating throughout the arms and legs. There is no asymmetry to it. She is never had this before. She does take a preworkout supplements and a lot of vitamins. Denies other energy drinks or mark g or alcohol use. No current headache but she did have a headache a few weeks ago. Review of Systems Ten Systems: 10 systems reviewed and negative Constitutional: denies: Fever, Chills, Fatigue Cardiac: denies: Chest pain / pressure, Palpitations Respiratory: denies: Dyspnea, Cough GI: denies: Abdominal Pain, Nausea, Vomiting, Diarrhea : denies: Now [place] PD PAST MEDICAL HISTORY - Past Surgical History Past Surgical History: No - Present Medications Home Medications: Ambulatory Orders Medication Instructions Recorded Confirmed Metoprolol Tartrate [Lopressor] 25 mg PO DAILY #30 tablet 09/20/21 10/09/21 - Allergies Allergies/Adverse Reactions: Allergies Allergy/AdvReac Type Severity Reaction Status Date / Time No Known Drug Allergies Allergy Verified 12/20/21 19:42 - Social History Does the pt smoke?: No Smoking Status: Never smoker Does the pt drink ETOH?: No Does the pt have substance abuse?: No - Immunizations Immunizations are current?: No - POLST Patient has POLST: No PD ED PE NORMAL - Vitals Vital signs reviewed: Yes - General General: Alert and oriented X 3, No acute distress - HEENT HEENT: PERRL, EOMI - Neck Neck: Supple, no meningeal sign, No bony TTP - Cardiac Cardiac: RRR, No murmur - Respiratory Respiratory: No respiratory distress, Clear bilaterally - Abdomen Abdomen: Normal bowel sounds, Soft, Non tender - Back Back: No CVA TTP, No spinal TTP - Derm Derm: Normal color, Warm and dry - Extremities Extremities: No edema, No calf tenderness / cord - Neuro Neuro: Alert and oriented X 3, No motor deficit, No sensory deficit, Normal speech, Other (Upper and lower extremity reflexes are normal as is sensation and strength throughout. No diminution in sensation in the scalp or neck.) Eye Opening: Spontaneous Motor: Obeys Commands Verbal: Oriented GCS Score: 15 Results - Vitals Vitals: Vital Signs - 24 hr 12/20/21 12/20/21 19:35 19:52 Temperature 36.6 C Heart Rate 67 68 Respiratory 14 20 Rate Blood Pressure 137/84 H 122/92 H O2 Saturation 99 100 Oxygen O2 Source Room air - Labs Labs: Laboratory Tests 12/20/21 12/20/21 12/20/21 19:58 19:58 19:58 WBC 9.2 RBC 4.44 Hgb 12.9 Hct 38.5 MCV 86.7 MCH 29.1 MCHC 33.5 RDW 12.4 Plt Count 201 MPV 10.8 Neut # (Auto) 5.0 Lymph # (Auto) 3.2 [place] # (Auto) 0.7 Eos # (Auto) 0.2 Baso # (Auto) 0.0 Absolute Nucleated RBC 0.00 Nucleated RBC % 0.0 Sodium 136 Potassium 3.9 Chloride 103 Carbon Dioxide 29 Anion Gap 4.0 L BUN 10 Creatinine 0.7 Estimated GFR (MDRD) 102 Glucose 95 Calcium 8.9 Magnesium 2.0 Total Bilirubin 0.7 AST 18 ALT 27 Alkaline Phosphatase 44 Total Protein 7.1 Albumin 4.3 Globulin 2.8 Albumin/Globulin Ratio 1.5 TSH 2.21 PD MEDICAL DECISION MAKING - ED course ED course: 26-year-old woman with paresthesias all over the body for 3 days. No focality to suggest a primary neurologic cause. Electrolytes and thyroid unremarkable. Exam is normal. Departure - Departure Disposition: 01 Home, Self Care Clinical Impression: Paresthesias Condition: Good Record reviewed to determine appropriate education?: Yes Instructions: ED Paraesthesias Comments: The cause of your symptoms is not clear, CBC, electrolytes, kidney function, and thyroid Function are all normal. If symptoms are persistent follow-up with your doctor for reevaluation and consideration for referral to neurology.
[2021-12-20 20:02] LABS: BASOPHILS % (AUTO) 0.3 %; EOSINOPHILS # (AUTO) 0.2 10^3/uL (0.0-0.7); EOSINOPHILS % (AUTO) 2.3 %; HCT - HEMATOCRIT 38.5 % (37.0-47.0); HGB - HEMOGLOBIN 12.9 g/dL (12.0-16.0); LYMPHOCYTES # (AUTO) 3.2 10^3/uL (1.5-3.5); LYMPHOCYTES % (AUTO) 34.8 %; MEAN CORPUSCULAR HEMOGLOBIN 29.1 pg (27.0-31.0); MEAN CORPUSCULAR HGB CONC 33.5 g/dL (32.0-36.0); MEAN CORPUSCULAR VOLUME 86.7 fL (81.0-99.0); MEAN PLATELET VOLUME 10.8 fL (7.9-10.8); MONOCYTES # (AUTO) 0.7 10^3/uL (0.0-1.0); MONOCYTES % (AUTO) 7.5 %; NEUTROPHILS % (AUTO) 54.7 %; PLT - PLATELET COUNT 201 10^3/uL (130-450); RED BLOOD COUNT 4.44 10^6/uL (4.20-5.40); RED CELL DISTRIBUTION WIDTH 12.4 % (12.0-15.0); WHITE BLOOD COUNT 9.2 x10^3/uL (4.8-10.8)
[2021-12-20 20:23] LABS: ALBUMIN 4.3 g/dL (3.2-5.5); ALBUMIN/GLOBULIN RATIO 1.5 (1.0-2.2); BILIRUBIN,TOTAL 0.7 mg/dL (0.2-1.0); CALCIUM 8.9 mg/dL (8.5-10.3); CREATININE 0.7 mg/dL (0.4-1.0); POTASSIUM 3.9 mmol/L (3.5-5.0); TOTAL PROTEIN 7.1 g/dL (6.7-8.2)
[2021-12-20 21:23] VITALS: BP 120/80
== END 2021-12-20 21:05 | disposition home or self-care (01) ==
LOC: ED 19:27
DX: R20.2 Paresthesia of skin (principal)
CPT/HCPCS: 36415; 80053; 83735; 84443; 85025; 99282; 99283

== ENCOUNTER 2022-03-19 11:50 | Outpatient (CLI) | payer OTHER ==
[2022-03-19 18:24] LABS: THYROID STIMULATING HORMONE 1.6 uIU/mL (0.34-5.60)
[2022-03-19 18:52] LABS: FOLLICLE STIMULATING HORMONE 4.4 mIU/mL
[2022-03-19 18:53] LABS: LUTEINIZING HORMONE 2.34 mIU/mL
[2022-03-20 05:10] LABS: ESTRADIOL 31.2 pg/mL (.); PROGESTERONE 0.3 ng/mL (.)
[2022-03-20 17:08] LABS: FREE TESTOSTERONE(DIRECT) 4.6 pg/mL (0.0-4.2)
== END 2022-03-19 11:51 | disposition home or self-care (01) ==
LOC: LAB.N 11:50
PROVIDERS: ATTEND Nurse Practitioner
DX: Z31.41 Encounter for fertility testing (principal)
CPT/HCPCS: 36415; 82626; 82670; 83001; 83002; 84144; 84402; 84403; 84443

== ENCOUNTER 2022-04-24 19:45 | Emergency (ER) | payer OTHER ==
[2022-04-24 20:16] VITALS: BP 137/83
== END 2022-04-24 21:29 | disposition left against medical advice (07) ==
LOC: ED 19:45
DX: Z53.21 Procedure and treatment not carried out due to patient leaving prior to being seen by health care provider (principal)

== ENCOUNTER 2022-05-01 14:18 | Emergency (ER) | payer OTHER ==
--- NOTE | 2022-05-01 17:22 | ED Physician Documentation ---
History of Present Illness - Stated complaint Stated Complaint: DIZZY - Chief complaint Chief Complaint: Neuro - Additonal information Additional information: 27-year-old female presents emergency department for the sensation of feeling off balance now for a few weeks. She feels like the floor moves under her when she walks. She began taking meclizine today without relief. She is also reporting irgq-fql-froghhi throughout her body. She has had no nausea or vomiting. The sensation is present only when walking. She denies ear pain tinnitus or diplopia. She is scheduled to see a neurologist in follow-up in a few weeks as well as her primary care doctor at the end of this month. She does state that she has a history of an irregular heart rate. She states that sometimes she has palpitations. She denies chest pain. On exam she appears rather well though is anxious Review of Systems Constitutional: reports: Reviewed and negative Eyes: reports: Reviewed and negative Ears: reports: Reviewed and negative Nose: reports: Reviewed and negative Cardiac: reports: Reviewed and negative Respiratory: reports: Reviewed and negative : reports: Reviewed and negative Skin: reports: Reviewed and negative Musculoskeletal: reports: Reviewed and negative Neurologic: reports: Other (Dizzy) PD PAST MEDICAL HISTORY - Past Surgical History Past Surgical History: No - Present Medications Home Medications: Ambulatory Orders Medication Instructions Recorded Confirmed Metoprolol Tartrate [Lopressor] 25 mg PO DAILY #30 tablet 09/20/21 04/24/22 - Allergies Allergies/Adverse Reactions: Allergies Allergy/AdvReac Type Severity Reaction Status Date / Time No Known Drug Allergies Allergy Verified 05/01/22 14:32 - Social History Does the pt smoke?: No Smoking Status: Never smoker Does the pt drink ETOH?: No Does the pt have substance abuse?: No - Immunizations Immunizations are current?: No - POLST Patient has POLST: No PD ED PE NORMAL - General General: Alert and oriented X 3, No acute distress - HEENT HEENT: PERRL - Neck Neck: Supple, no meningeal sign, No adenopathy - Cardiac Cardiac: RRR, No murmur - Respiratory Respiratory: No respiratory distress - Abdomen Abdomen: Normal bowel sounds, Soft - Derm Derm: Normal color, Warm and dry, No rash - Extremities Extremities: No deformity, No tenderness to palpate, Normal ROM s pain - Neuro Neuro: Alert and oriented X 3, pawn broker 2-12 intact, No motor deficit, No sensory deficit, Normal speech, Other (Normal gait, normal normal finger-nose, normal rapid alternating movements) Eye Opening: Spontaneous Motor: Obeys Commands Verbal: Oriented GCS Score: 15 Results - Vitals Vitals: Vital Signs - 24 hr 05/01/22 05/01/22 14:29 18:04 Temperature 36.3 C L Heart Rate 71 70 Respiratory 14 20 Rate Blood Pressure 140/80 H 121/75 O2 Saturation 100 100 Oxygen O2 Source Room air - EKG (time done) 1727 Rate: Rate (enter#) (75) Rhythm: NSR [place]: Normal Intervals: Normal [place] QRS: Normal Ischemia: Normal ST segments Compare to prior EKG: Old EKG unavailable Computer interpretation: Agree with computer - Labs Labs: Laboratory Tests 05/01/22 05/01/22 05/01/22 17:19 17:22 17:22 WBC 12.1 H RBC 5.08 Hgb 14.3 Hct 43.4 MCV 85.4 MCH 28.1 MCHC 32.9 RDW 12.4 Plt Count 232 MPV 10.9 H Neut # (Auto) 7.1 H Lymph # (Auto) 3.7 H [place] # (Auto) 0.9 Eos # (Auto) 0.3 Baso # (Auto) 0.1 Absolute Nucleated RBC 0.00 Nucleated RBC % 0.0 Sodium 139 Potassium 3.4 L Chloride 102 Carbon Dioxide 30 Anion Gap 7.0 BUN 14 Creatinine 0.7 Estimated GFR (MDRD) 101 Glucose 90 Calcium 9.3 Total Bilirubin 0.4 AST 25 ALT 53 Alkaline Phosphatase 64 Total Protein 8.2 Albumin 4.5 Globulin 3.7 Albumin/Globulin Ratio 1.2 Lipase 26 Urine Color YELLOW Urine Clarity CLEAR Urine pH 6.5 Ur Specific [place] 1.015 Urine Protein NEGATIVE Urine Glucose (UA) NEGATIVE Urine Ketones NEGATIVE Urine Occult Blood NEGATIVE Urine Nitrite NEGATIVE Urine Bilirubin NEGATIVE Urine Urobilinogen 0.2 (NORMAL) Ur Leukocyte Esterase NEGATIVE Ur Microscopic Review NOT INDICATED Urine Culture Comments NOT INDICATED Urine HCG, Qual NEGATIVE - Rads (name of study) CT head Radiology: Final report received (No acute intracranial process) PD MEDICAL DECISION MAKING - ED course Complexity details: reviewed results, re-evaluated patient, considered differential, d/w patient ED course: Well-appearing 27-year-old female presents emergency department for evaluation of sensation of disequilibrium. She feels like the floor is floating when she walks. No diplopia. She is also been having generalized cdva-ggo-dxlgtxr in her arms and legs for a number of months. She is scheduled to see a neurologist in a few weeks. Here in the emergency department her EKG is sinus without ectopy. Vital signs were unremarkable. CBC and electrolytes including TSH and urine were all without worrisome findings. Her neurological and cerebellar exam was unremarkable. A CT of the head did not show any acute intracranial findings such as mass or lesion. I discussed with patient that the broad differential of disequilibrium as well as the sensation and nsox-vby-gmzthoo should further be evaluated by the neurologist that she will see in a few weeks. She is concerned that she could potentially have multiple sclerosis. We discussed further work-up of this with the neurologist Patient is discharged home in stable condition. Appropriate emergent return precautions were discussed. Departure - Departure Disposition: 01 Home, Self Care Clinical Impression: Dizzy Condition: Stable Record reviewed to determine appropriate education?: Yes Instructions: ED Dizziness UKO Comments: Jen you are seen today in the emergency department because you have been feeling off balance and dizzy for a few weeks. You have also been having nhbt-gxs-ujugzmc in your arms and legs. Here in the emergency department your CBC and electrolytes were all essentially normal. The CT of your head did not show any worrisome findings. I think it is important that you continue to discuss these various symptoms with your primary care provider as well as the neurologist that you are scheduled to see in a few weeks. You can continue to take the meclizine [id number]. Return to the ER if you develop any sudden double vision, slurred speech facial droop or arm or leg weakness
[2022-05-01 17:33] LABS: BASOPHILS # (AUTO) 0.1 10^3/uL (0.0-0.1); BASOPHILS % (AUTO) 0.4 %; EOSINOPHILS # (AUTO) 0.3 10^3/uL (0.0-0.7); EOSINOPHILS % (AUTO) 2.2 %; HCT - HEMATOCRIT 43.4 % (37.0-47.0); HGB - HEMOGLOBIN 14.3 g/dL (12.0-16.0); LYMPHOCYTES # (AUTO) 3.7 10^3/uL (1.5-3.5); LYMPHOCYTES % (AUTO) 30.8 %; MEAN CORPUSCULAR HEMOGLOBIN 28.1 pg (27.0-31.0); MEAN CORPUSCULAR HGB CONC 32.9 g/dL (32.0-36.0); MEAN CORPUSCULAR VOLUME 85.4 fL (81.0-99.0); MEAN PLATELET VOLUME 10.9 fL (7.9-10.8); MONOCYTES # (AUTO) 0.9 10^3/uL (0.0-1.0); MONOCYTES % (AUTO) 7.1 %; NEUTROPHILS # (AUTO) 7.1 10^3/uL (1.5-6.6); NEUTROPHILS % (AUTO) 58.9 %; PLT - PLATELET COUNT 232 10^3/uL (130-450); RED BLOOD COUNT 5.08 10^6/uL (4.20-5.40); RED CELL DISTRIBUTION WIDTH 12.4 % (12.0-15.0); WHITE BLOOD COUNT 12.1 x10^3/uL (4.8-10.8)
[2022-05-01 17:39] LABS: ALBUMIN 4.5 g/dL (3.2-5.5); ALBUMIN/GLOBULIN RATIO 1.2 (1.0-2.2); BILIRUBIN,TOTAL 0.4 mg/dL (0.2-1.0); CALCIUM 9.3 mg/dL (8.5-10.3); CREATININE 0.7 mg/dL (0.4-1.0); POTASSIUM 3.4 mmol/L (3.5-5.0); TOTAL PROTEIN 8.2 g/dL (6.7-8.2)
[2022-05-01 17:40] LABS: BILIRUBIN,URINE NEGATIVE (NEGATIVE); GLUCOSE, URINE (UA) NEGATIVE (NEGATIVE); KETONES,URINE (UA) NEGATIVE (NEGATIVE); LEUKOCYTE ESTERASE, URINE NEGATIVE (NEGATIVE); NITRITE,URINE NEGATIVE (NEGATIVE); OCCULT BLOOD,URINE NEGATIVE (NEGATIVE); PH,URINE 6.5 PH (5.0-7.5); PROTEIN,URINE NEGATIVE (NEGATIVE); UROBILINOGEN,URINE 0.2 (NORMAL) E.U./dL (NORMAL)
[2022-05-01 17:42] LABS: CLARITY,URINE CLEAR (CLEAR); HCG UR QUAL NEGATIVE
--- NOTE | 2022-05-01 18:18 | CT Report ---
PROCEDURE: CT brain without contrast INDICATIONS: dizzy TECHNIQUE: Noncontrast 4.5 mm thick angled axial sections acquired from the foramen magnum to the vertex. For r adiation dose reduction, the following was used: automated exposure control, adjustment of mA and/or kV according to patient size. COMPARISON: None. FINDINGS: Image quality: Excellent. CSF spaces: Basal cisterns are patent. No extra-axial fluid collections. Ventricles are normal in size and shape. Brain: No midline shift. No intracranial masses or hemorrhage. Hicks-white matter interface is norm al. Skull and face: Calvarium and visualized facial bones are intact, without suspicious lesions. Sinuses: Visualized sinuses and mastoids are clear. IMPRESSION: Normal CT of the brain Reviewed by: Sandeep Crane MD on 05/01/2022 5:17 PM [place] Approved by: Sandeep Crane MD on 05/01/2022 5:17 PM [place] Station ID: [id number]
[2022-05-01 18:56] VITALS: BP 100/62
== END 2022-05-01 19:07 | disposition home or self-care (01) ==
LOC: ED 14:18
DX: R42 Dizziness and giddiness (principal)
CPT/HCPCS: 36415; 80053; 81001; 81003; 81025; 83690; 85025; 87086; 93005; 99284

== ENCOUNTER 2022-08-06 14:17 | Emergency (ER) | payer OTHER ==
--- NOTE | 2022-08-06 16:25 | XRAY Report ---
PROCEDURE: Chest 1 View X-Ray INDICATIONS: chest pain TECHNIQUE: One view of the chest was acquired. COMPARISON: Chest x-ray 09/20/2021 FINDINGS: Surgical changes and devices: None. Lungs and pleura: No pleural effusions or pneumothorax. Lungs are clear. Mediastinum: Mediastinal contours appear normal. Heart size is normal. Bones and chest wall: No suspicious bony lesions. Overlying soft tissues appear unremarkable. IMPRESSION: No acute pulmonary process. Reviewed by: Susan Ash MD on 08/06/2022 4:24 PM PST Approved by: Susan Ash MD on 08/06/2022 4:24 PM PST Station ID: [id number]
[2022-08-06] MEDS ORDERED: NAPROXEN 250 MG TABLET PO STA (16:33)
[2022-08-06] MEDS ORDERED: SUCRALFATE 1 GM/10 ML UDC PO STA (16:33)
[2022-08-06] MEDS ORDERED: FAMOTIDINE 20 MG TABLET PO STA (16:33)
--- NOTE | 2022-08-06 16:36 | ED Physician Documentation ---
PD HPI CHEST PAIN - Stated complaint Stated Complaint: CHEST PX - Chief complaint Chief Complaint: Cardiac - History obtained from History obtained from: Patient - History of Present Illness Timing - onset: How many years ago (1) Timing - onset during: Sleep, Rest, Light activity. No: Exertion, Eating Timing - duration: Minutes (often lasts just minutes. Not usually improved/changed with movement, breathing, nor food.), Hours (current episode lasted about 2 hours, lessened here in ER.) Timing - details: Still present, Intermittant Quality: Tightness, Aching Location: Substernal, Left chest Radiation: No: Jaw, Neck, Back Improved by: No: Rest, Antacids, Other medication Worsened by: No: Inspiration, Eating, Movement, Palpation Associated symptoms: Shortness of air, Feeling faint / dizzy. No: Nausea, Vomiting, Palpitations Similar symptoms before: No diagnosis (has had these episodes for almost a year and has been to PCP and had referral to digital x ray service engineer who did ECHO and Ziopatch for a month.) Review of Systems Constitutional: denies: Fever, Chills Nose: denies: Rhinorrhea / runny nose, Congestion Throat: denies: Sore throat Cardiac: reports: Chest pain / pressure. denies: Palpitations, Pedal edema, Calf pain Respiratory: reports: Dyspnea. denies: Cough GI: denies: Nausea, Vomiting, Diarrhea, Bloody / black stool Skin: denies: Rash Musculoskeletal: denies: Neck pain, Back pain, Extremity swelling PD PAST MEDICAL HISTORY - Past Medical History Cardiovascular: None Respiratory: None Neuro: None Endocrine/Autoimmune: None Psych: Anxiety - Past Surgical History Past Surgical History: No - Present Medications Home Medications: Ambulatory Orders Medication Instructions Recorded Confirmed Metoprolol Tartrate [Lopressor] 25 mg PO DAILY #30 tablet 09/20/21 04/24/22 Famotidine [Pepcid] 20 mg PO DAILY 30 Days #30 tablet 08/06/22 Naproxen 250 mg PO BID 20 Days #40 tablet 08/06/22 Sucralfate [Carafate] 1 gm PO HS 30 Days #30 tablet 08/06/22 - Allergies Allergies/Adverse Reactions: Allergies Allergy/AdvReac Type Severity Reaction Status Date / Time No Known Drug Allergies Allergy Verified 08/06/22 14:35 - Social History Does the pt smoke?: No Smoking Status: Never smoker Does the pt drink ETOH?: No Does the pt have substance abuse?: No - Immunizations Immunizations are current?: No - POLST Patient has POLST: No PD ED PE NORMAL - Vitals Vital signs reviewed: Yes - General General: Alert and oriented X 3, No acute distress, Well developed/nourished - Neck Neck: Supple, no meningeal sign - Cardiac Cardiac: RRR, No murmur - Respiratory Respiratory: No respiratory distress, Clear bilaterally, Other (no chestwall tenderness. ) - Abdomen Abdomen: Soft, Non tender - Derm Derm: Normal color, Warm and dry - Neuro Neuro: Alert and oriented X 3, No motor deficit, Normal speech Results - Vitals Vitals: Vital Signs - 24 hr 08/06/22 08/06/22 08/06/22 14:32 15:49 16:10 Temperature 36.8 C Heart Rate 69 80 80 Respiratory 16 17 14 Rate Blood Pressure 132/81 H 113/68 O2 Saturation 100 100 100 08/06/22 08/06/22 16:42 16:45 Temperature 36.6 C Heart Rate 82 Respiratory 16 Rate Blood Pressure 112/96 H O2 Saturation 100 Oxygen O2 Source Room air - EKG (time done) 14:39 Rate: Rate (enter#) (79) Rhythm: NSR [place]: Normal Intervals: Normal [place] QRS: Normal Ischemia: Normal ST segments. No: ST elevation c/w ischemia, ST depression - Rads (name of study) chest xray Radiology: Prelim report reviewed, EMP read indepedently (no acute process with images viewd by me and also radiology report. ), See rad report PD Medical Decision Making - ED course Complexity details: reviewed results (ECG and Chest xray are normal. She states she has had blood tests through PCP and has seen Cardiology with ECHO and Ziopatch monitor without findings other than PVCs. She denies her saying anything about excess snoring or such to her. ), considered differential, d/w patient ED course: intermittent lower chest pain without chest wall tenderness but could consider inflammatory process in chest wall or even pericardial (would not be precluded by normal ECHO). Does not have direct effect better or worse with eating but could consider GERD as symptoms often are when lying or in mornings. can give Famotidine and some NSAID. It is not stomach pain per se, so does not sound like gastritis/ulcer. So I feel okay with both NSAID and acid c unix developer along with carafate. PMD could consider outpt breath or stool test for h. pylori. I talked with patient about potential home screening test for sleep apnea as her symptoms of anxiety, chest pains, dyspnea, and fatigue could relate to poor sloop quality. Departure - Departure Disposition: 01 Home, Self Care Clinical Impression: Chest pain Qualifiers: Chest pain type: precordial pain Qualified Code(s): R07.2 - Precordial pain Condition: Stable Record reviewed to determine appropriate education?: Yes Instructions: ED Chest Pain Atypical Unkn Cause Follow-Up: JESSIKA JEFFERS ARNP [Primary Care Provider] - Prescriptions: Sucralfate [Carafate] 1 gm PO HS 30 Days #30 tablet Naproxen 250 mg PO BID 20 Days #40 tablet Famotidine [Pepcid] 20 mg PO DAILY 30 Days #30 tablet Comments: Considerations for the pain could include some persistent and repetitive reflux with esophageal irritation. Other consideration can be some inflammatory process deeper in the chest area and not just cartilage on the surface. Right now your EKG appears normal and your chest x-ray is clear. The echocardiogram that your digital x ray service engineer did should have picked up on an enlarged heart or valvular processes. There can be some mild inflammation around the heart though that would not be evident on that and could be causing some of the discomfort (pericarditis). Other consideration can be anxiety though that still tends to translate into transient chest pain due to increase stomach acid sore inflammation in the chest musculature. We can try some anti-inflammatory as well as acid reducing medicine and coating the esophagus/stomach at night over the next several weeks. If this shows consistent improvement in your symptoms, then you need to go to just 1 treatment or the other in order to tell which of them was the effective. Follow-up with your primary care if not improved over the next week and a half or so to decide other treatment options. Continue with your counseling for anxiety. This does not sound like angina or heart disease based on the nonexertional character and also the normal testing through your digital x ray service engineer. I sent your prescription to [facility] in [place]. Discharge Date/Time: 08/06/22 16:57
[2022-08-06 16:43] VITALS: BP 112/96
== END 2022-08-06 16:57 | disposition home or self-care (01) ==
LOC: ED 14:17
DX: R07.2 Precordial pain (principal)
CPT/HCPCS: 71045; 93005; 99283; 99284; A9270

== ENCOUNTER 2022-09-30 18:43 | Emergency (ER) | payer OTHER ==
[2022-09-30] MEDS ORDERED: METOCLOPRAMIDE 10 MG/2 ML VIAL IVP STA (19:09)
[2022-09-30] MEDS ORDERED: HYDROmorphone 1 MG/ML CARPUJECT IVP STA (19:09)
--- NOTE | 2022-09-30 19:11 | ED Physician Documentation ---
PD HPI HEADACHE - Stated complaint Stated Complaint: TRUJILLO,EAR/NECK PX/DIZZY - Chief complaint Chief Complaint: Neuro - History obtained from History obtained from: Patient - Additional information Additional information: 27-year-old woman who has a history of headaches presents with a headache much different than her usual. It was a sudden onset had bitemporal headache starting 5 days ago and has been constant ever since. It is associated with head twitching and it is much worse laying flat than it is when she is upright. She has numbness and tingling in the scalp and hands with this, that said that is a more chronic phenomenon for which she saw a neurologist a few months ago with reportedly negative work-up with MRI, but pending nerve conduction study. She was seen at the walk-in clinic for this few days ago and given Toradol, Benadryl, Zofran, and dexamethasone without relief. Review of Systems Constitutional: denies: Fever, Chills Eyes: denies: Loss of vision, Decreased vision, Photophobia, Discharge, Irritation PD PAST MEDICAL HISTORY - Past Medical History Cardiovascular: None Respiratory: None Neuro: None Endocrine/Autoimmune: None Psych: Anxiety - Past Surgical History Past Surgical History: No - Present Medications Home Medications: Ambulatory Orders Medication Instructions Recorded Confirmed Metoprolol Tartrate [Lopressor] 25 mg PO DAILY #30 tablet 09/20/21 04/24/22 Famotidine [Pepcid] 20 mg PO DAILY 30 Days #30 tablet 08/06/22 Naproxen 250 mg PO BID 20 Days #40 tablet 08/06/22 Sucralfate [Carafate] 1 gm PO HS 30 Days #30 tablet 08/06/22 acetaZOLAMIDE [Acetazolamide] 125 mg PO BID #60 tablet 09/30/22 - Allergies Allergies/Adverse Reactions: Allergies Allergy/AdvReac Type Severity Reaction Status Date / Time No Known Drug Allergies Allergy Verified 09/30/22 18:46 - Social History Does the pt smoke?: No Smoking Status: Never smoker Does the pt drink ETOH?: No Does the pt have substance abuse?: No - Immunizations Immunizations are current?: No - POLST Patient has POLST: No PD ED PE NORMAL - Vitals Vital signs reviewed: Yes - General General: Alert and oriented X 3, No acute distress - HEENT HEENT: PERRL, EOMI, Ears normal, Moist mucous membranes, Pharynx benign - Neck Neck: Supple, no meningeal sign, No bony TTP - Neuro Neuro: Alert and oriented X 3, rock picker 2-12 intact, No motor deficit, No sensory deficit, Normal speech Eye Opening: Spontaneous Motor: Obeys Commands Verbal: Oriented GCS Score: 15 - Psych Psych: Normal mood, Normal affect Results - Vitals Vitals: Vital Signs - 24 hr 09/30/22 09/30/22 09/30/22 18:46 19:19 20:10 Temperature 36.5 C Heart Rate 70 123 H 83 Respiratory 16 18 18 Rate Blood Pressure 140/80 H 131/98 H 115/66 O2 Saturation 100 100 100 09/30/22 20:35 Temperature 37.0 C Heart Rate 87 Respiratory 18 Rate Blood Pressure 119/58 L O2 Saturation 100 Oxygen O2 Source Room air - Labs Labs: Microbiology 09/30/22 19:55 CSF Culture - Preliminary Cerebral Spinal Fluid Laboratory Tests 09/30/22 09/30/22 09/30/22 19:15 19:15 19:55 WBC 16.4 H RBC 5.33 Hgb 14.8 Hct 45.1 MCV 84.6 MCH 27.8 MCHC 32.8 RDW 12.7 Plt Count 269 MPV 10.8 Neut # (Auto) 9.5 H Lymph # (Auto) 4.9 H [place] # (Auto) 1.0 Eos # (Auto) 0.6 Baso # (Auto) 0.1 Absolute Nucleated RBC 0.00 Nucleated RBC % 0.0 Sodium 137 Potassium 4.0 Chloride 102 Carbon Dioxide 28 Anion Gap 7.0 BUN 15 Creatinine 0.6 Estimated GFR (MDRD) 121 Glucose 88 Calcium 8.9 CSF Color COLORLESS CSF Clarity CLEAR Xanthrochromic ABSENT CSF WBC 0 CSF RBC 0 CSF Cell Count Tube # CSF TUBE# 3 CSF Glucose 55 CSF Total Protein 26 Procedures - Lumbar Puncture - Major Position: Laying left side Location: L3-L4, Midline approach Anesthesia: Local lidocaine CSF: Clear (12ml) Pressures: Opening Pressure (39cm H2O), Closing Pressure (22cm H2O) Other: Sterile prep and drape, Patient tolerated well PD Medical Decision Making - ED course ED course: 27-year-old woman with headache, there are some concerning symptoms including sudden onset which would be concerning for subarachnoid hemorrhage, also it is worse when she is supine which could be consistent with idiopathic intracranial hypertension. Her symptoms are not suggestive of meningitis and she has no meningismus. Subsequently an LP was done with an opening pressure of 39. I took 12 mL of fluid off and her closing pressure was 25. Her headache was much better. I discussed her case by phone with Dr. Etienne Preston who is on-call for her neurologist, Dr. Mack. We discussed the diagnostics and he agreed with starting low-dose Diamox and recommends the addition of oligoclonal bands, IgG index, and cryptococcal antigen to her CSF. Also AFB and fungal studies if her CSF cell count was abnormal. Also recommends referral to ophthalmology for consideration for evaluation for papilledema. Departure - Departure Disposition: Home, Self Care Clinical Impression: Idiopathic intracranial hypertension Headache Qualifiers: Headache type: other headache syndrome Qualified Code(s): G44.89 - Other headache syndrome Condition: Good Record reviewed to determine appropriate education?: Yes Instructions: ED Cephalgia Unspecified Follow-Up: Chava Reyes MD [Provider Admit Priv/Credential] - Prescriptions: acetaZOLAMIDE [Acetazolamide] 125 mg PO BID #60 tablet Comments: You were seen today for headache, the work-up included a CAT scan which was unremarkable, but more importantly we did a spinal tap, and in a left lateral decubitus position your opening pressure was 39 which is abnormally high suggesting a diagnosis of idiopathic intracranial hypertension. I discussed the case by phone with Dr. Preston, who is a partner of your neurologist who recommended the medication we are prescribing and some specific labs to be done on the cerebrospinal fluid that we collected including oligoclonal bands, IgG index, and cryptococcal antigen. These are pending on discharge and you should follow-up with Dr. Lomeli who can request them from our lab. The neurologist also recommended that you follow-up with an high school counselor to look at your optic disks to see if they are swollen, 1 is listed on this form and you can call tomorrow for an appointment. Return for new or worsening symptoms. Call Dr. Mack's office tomorrow as well. Discharge Date/Time: 09/30/22 20:37
[2022-09-30 19:27] LABS: CALCIUM 8.9 mg/dL (8.5-10.3); CREATININE 0.6 mg/dL (0.4-1.0)
[2022-09-30 19:29] LABS: BASOPHILS # (AUTO) 0.1 10^3/uL (0.0-0.1); BASOPHILS % (AUTO) 0.6 %; EOSINOPHILS # (AUTO) 0.6 10^3/uL (0.0-0.7); EOSINOPHILS % (AUTO) 3.7 %; HCT - HEMATOCRIT 45.1 % (37.0-47.0); HGB - HEMOGLOBIN 14.8 g/dL (12.0-16.0); LYMPHOCYTES # (AUTO) 4.9 10^3/uL (1.5-3.5); LYMPHOCYTES % (AUTO) 30.2 %; MEAN CORPUSCULAR HEMOGLOBIN 27.8 pg (27.0-31.0); MEAN CORPUSCULAR HGB CONC 32.8 g/dL (32.0-36.0); MEAN CORPUSCULAR VOLUME 84.6 fL (81.0-99.0); MEAN PLATELET VOLUME 10.8 fL (7.9-10.8); MONOCYTES % (AUTO) 6.1 %; NEUTROPHILS # (AUTO) 9.5 10^3/uL (1.5-6.6); NEUTROPHILS % (AUTO) 57.9 %; PLT - PLATELET COUNT 269 10^3/uL (130-450); RED BLOOD COUNT 5.33 10^6/uL (4.20-5.40); RED CELL DISTRIBUTION WIDTH 12.7 % (12.0-15.0); WHITE BLOOD COUNT 16.4 x10^3/uL (4.8-10.8)
--- NOTE | 2022-09-30 19:42 | CT Report ---
PROCEDURE: HEAD WO INDICATIONS: headache TECHNIQUE: Noncontrast 4.5 mm thick angled axial sections acquired from the foramen magnum to the vertex. For r adiation dose reduction, the following was used: automated exposure control, adjustment of mA and/or kV according to patient size. COMPARISON: Head CT 05/01/2022 FINDINGS: CSF spaces: Basal cisterns are patent. No extra-axial fluid collections. Ventricles are normal in size and shape. Brain: No midline shift. No intracranial masses or hemorrhage. Hicks-white matter interface is norm al. Skull and face: Calvarium and visualized facial bones are intact, without suspicious lesions. Sinuses: Visualized sinuses and mastoids are clear. IMPRESSION: No acute intracranial pathology Reviewed by: Jonas Lopez MD on 09/30/2022 7:41 PM PDT Approved by: Jonas Lopez MD on 09/30/2022 7:41 PM PDT Station ID: [id number]
[2022-09-30] MEDS ORDERED: acetaZOLAMIDE 250 MG TABLET PO STA (20:16)
[2022-09-30 20:28] LABS: CSF - GLUCOSE 55 mg/dL (45-70); TOTAL PROTEIN,CSF 26 mg/dL (15-45)
[2022-09-30 20:37] VITALS: BP 119/58
[2022-09-30 20:41] LABS: CLARITY,CSF CLEAR (CLEAR); COLOR,CSF COLORLESS (COLORLESS); CSF TUBE # CSF TUBE# 3; CSF XANTHOCHROMIA ABSENT (ABSENT); RED BLOOD CELL,CSF 0 /mm^3 (0-1); WHITE BLOOD CELL,CSF 0 /mm^3 (0-5)
== END 2022-09-30 20:37 | disposition home or self-care (01) ==
LOC: ED 18:43
DX: G93.2 Benign intracranial hypertension (principal); G44.89 Other headache syndrome
CPT/HCPCS: 36415; 62270; 70450; 80048; 81599; 82945; 84157; 85025; 87070; 87205; 89051; 96374; 96375; 99283; 99284; A9270; J1170; J2765

== ENCOUNTER 2022-11-08 22:14 | Outpatient (CLI) | payer OTHER ==
--- NOTE | 2022-11-09 00:20 | Ultrasound Report ---
PROCEDURE: Pelvic w/Transvaginal INDICATIONS: IRREGULAR MENSTRATION TECHNIQUE: Real-time scanning was performed of the pelvic organs, with image documentation. Additional endovagi nal scanning was necessary due to incomplete visualization of the adnexal and endometrial structures by transabdominal scanning. COMPARISON: None. FINDINGS: Uterus: Uterus is anteverted and normal in size at 7.4 x 3.9 x 4.7 cm. The myometrium is heterogene ous. The endometrium measures 14 mm in combined thickness. The endometrial stripe appears heterogen eous. No abnormal vascularity can be seen along the endometrial stripe. Ovaries: The right ovary measures 2.9 x 2.7 x 3 cm, with a calculated ovarian volume of 12 cc. A ri ght-sided paraovarian cyst can be seen that measures up to 2.7 cm. The left ovary measures 2.8 x 1.2 x 1.8 cm, with a calculated ovarian volume of 3.2 cc. The ovaries have a normal sonographic appearance. Less than 12 follicles can be seen in each ovary. No adnexal masses are seen. No cystic lesions measuring greater than 3 cm. Other: There is a moderate amount of free pelvic fluid seen. IMPRESSION: Complex, irregular endometrial stripe, which demonstrates normal thickness. No abnormal vascularity c an be seen along the endometrial stripe. A moderate amount of free pelvic fluid can be seen. A right paraovarian cyst can be seen that measures up to 2.7 cm, which is not regarded to be suspicio us. Reviewed by: Gutierrez Richardson MD on 11/08/2022 11:19 PM THIERRY Approved by: Gutierrez Richardson MD on 11/08/2022 11:19 PM THIERRY Station ID: [id number]
== END 2022-11-08 22:15 | disposition home or self-care (01) ==
LOC: DI 22:14
PROVIDERS: ATTEND Nurse Practitioner
DX: N92.6 Irregular menstruation, unspecified (principal); N83.201 Unspecified ovarian cyst, right side

== ENCOUNTER 2023-04-28 18:15 | Emergency (ER) | payer OTHER ==
[2023-04-28 19:06] VITALS: O2SAT 100
--- NOTE | 2023-04-28 22:11 | ED Physician Documentation ---
PD HPI HEADACHE - Stated complaint Stated Complaint: TRUJILLO/FACE NUMBNESS/LT LEG PX - Chief complaint Chief Complaint: General - History obtained from History obtained from: Patient - Additional information Additional information: HPI from patient. Patient complains of 1 week of right-sided headache. Constant, but waxing and waning without apparent exacerbating or ameliorating factors. She has been ta abelardo Tylenol periodically but without any relief. She says the pain is worse with palpation to the right side of her head. She denies visual changes, denies fever. She has a history of idiopathic intracranial hypertension for which she takes acetazolamide. She also complains of a couple of days of atraumatic left lateral calf pain. Denies injury, denies exacerbating/ameliorating factors. This pain is episodic without apparent inciting factors. Review of Systems Constitutional: denies: Fever, Chills, Sweats Eyes: reports: Reviewed and negative GI: denies: Nausea, Vomiting Musculoskeletal: reports: Extremity pain. denies: Extremity swelling, Pain with weight bearing Neurologic: reports: Headache. denies: Generalized weakness, Focal weakness, Numbness, Confused, Altered mental status, Head injury PD PAST MEDICAL HISTORY - Past Medical History Cardiovascular: None Respiratory: None Neuro: Other Endocrine/Autoimmune: None Psych: Anxiety Other Past Medical History: idiopathic intracranial hypertension - Past Surgical History Past Surgical History: No - Present Medications Home Medications: Ambulatory Orders Medication Instructions Recorded Confirmed acetaZOLAMIDE [Acetazolamide] 125 mg PO BID #60 tablet 09/30/22 04/28/23 - Allergies Allergies/Adverse Reactions: Allergies Allergy/AdvReac Type Severity Reaction Status Date / Time No Known Drug Allergies Allergy Verified 04/28/23 19:06 - Social History Does the pt smoke?: No Smoking Status: Never smoker Does the pt drink ETOH?: No Does the pt have substance abuse?: No - Immunizations Immunizations are current?: No - POLST Patient has POLST: No PD ED PE NORMAL - Vitals Vital signs reviewed: Yes - General General: Alert and oriented X 3, No acute distress, Well developed/nourished - HEENT HEENT: PERRL, EOMI - Neck Neck: Supple, no meningeal sign - Cardiac Cardiac: RRR, No murmur - Respiratory Respiratory: No respiratory distress, Clear bilaterally - Extremities Extremities: No deformity, No tenderness to palpate, Normal ROM s pain, No edema, No calf tenderness / cord - Neuro Neuro: Alert and oriented X 3, tube test technician 2-12 intact, No motor deficit, No sensory deficit, Normal speech Eye Opening: Spontaneous Motor: Obeys Commands Verbal: Oriented GCS Score: 15 Results - Vitals Vitals: Vital Signs - 24 hr 04/28/23 04/28/23 19:01 23:13 Temperature 36.5 C Heart Rate 82 79 Respiratory 16 15 Rate Blood Pressure 145/86 H 120/89 H O2 Saturation 100 100 Oxygen O2 Source Room air - Rads (name of study) CTH Relevant Findings:: Prelim report reviewed, See rad report PD Medical Decision Making - ED course Complexity details: reviewed results, re-evaluated patient, considered differential, d/w patient ED course: . Patient is in NAD. CT scan of the head is unremarkable. On reevaluation, I discussed the results of the CT with the patient. She remains in no distress. She declines analgesics. Return precautions are discussed. The cause of the patient's headache is not apparent at this time. Departure - Departure Disposition: 01 Home, Self Care Clinical Impression: Headache Condition: Good Instructions: ED Cephalgia Unspecified Follow-Up: RODOLFO EVANS NP [Primary Care Provider] - Within 1 week Comments: The CT scan of your head was unremarkable; no evidence of the cause of your headache. There is no evidence of bleeding or a tumor. The cause of your headache is not apparent at this time. Follow-up with your primary care provider, next available appointment. Further testing might be needed, particularly if your headache persists or is reoccurring. Forms: PCP List
--- NOTE | 2023-04-29 00:42 | CT Report ---
PROCEDURE: HEAD WO INDICATIONS: TRUJILLO TECHNIQUE: Noncontrast 4.5 mm thick angled axial sections acquired from the foramen magnum to the vertex. For r adiation dose reduction, the following was used: automated exposure control, adjustment of mA and/or kV according to patient size. COMPARISON: 09/30/2022 and 05/01/2022. FINDINGS: Image quality: Excellent. CSF spaces: Basal cisterns are patent. No extra-axial fluid collections. Ventricles are normal in size and shape. Brain: No midline shift. No intracranial masses or hemorrhage. Hicks-white matter interface is norm al. Skull and face: Calvarium and visualized facial bones are intact, without suspicious lesions. Sinuses: Visualized sinuses and mastoids are clear. IMPRESSION: No acute intracranial pathology. Reviewed by: Misha Reynoso MD on 04/29/2023 12:41 AM PST Approved by: Misha Reynoso MD on 04/29/2023 12:41 AM PST Station ID: [id number]
[2023-04-29 07:19] VITALS: BP 114/85
== END 2023-04-29 01:07 | disposition home or self-care (01) ==
LOC: ED 18:15
DX: R51.9 Headache, unspecified (principal); G93.2 Benign intracranial hypertension
CPT/HCPCS: 99282; 99284

== ENCOUNTER 2023-05-28 11:45 | Outpatient (CLI) | payer OTHER | END 2023-05-28 12:00 | disposition home or self-care (01) | LOC: LAB.N 11:45 | PROVIDERS: ATTEND Physician Assistant Medical | DX: J02.9 Acute pharyngitis, unspecified (principal) | CPT/HCPCS: 87070 ==

== ENCOUNTER 2023-09-17 13:00 | Outpatient (CLI) | payer OTHER ==
[2023-09-17 22:31] LABS: BACTERIAL VAGINOSIS DNA NEGATIVE (NEGATIVE); CANDIDA GLABRATA DNA POSITIVE (NEGATIVE); CANDIDA GROUP DNA NEGATIVE (NEGATIVE); CANDIDA KRUSEI DNA NEGATIVE (NEGATIVE); TRICHOMONAS VAGINALIS DNA NEGATIVE (NEGATIVE)
== END 2023-09-17 13:15 | disposition home or self-care (01) ==
LOC: LAB.N 13:00
PROVIDERS: ATTEND Family Medicine
DX: R30.0 Dysuria (principal)
CPT/HCPCS: 81514; 87086

== ENCOUNTER 2023-10-04 12:48 | Outpatient (CLI) | payer OTHER ==
--- NOTE | 2023-10-06 17:16 | MRI Report ---
PROCEDURE: Angio Head WO INDICATIONS: IDIOPATHIC INTRACRANIAL HYPERTENSION TECHNIQUE: Noncontrast axial 3-D [id number] MR angiogram, with 3-dimensional maximum intensity projection (M IP) reformats of the internal carotid arteries and posterior circulation then performed. COMPARISON: CT head without contrast dated 04/29/2023 FINDINGS: Image quality: Diagnostic. Anterior circulation: Intracranial internal carotid arteries demonstrate normal size and intralumina l flow signal. The flow within the paired anterior cerebral arteries is normal and symmetric. Right middle cerebral artery is widely patent. Question left and 2 segment stenosis versus artifact. The an terior communicating artery is seen. No stenoses, occlusions, or aneurysms. Posterior circulation: Question right P1 segment stenosis versus artifact. Question diffuse luminal irregularity of the right posterior cerebral artery versus artifact. Question left before segment ishaan nosis versus artifact. Distal right vertebral artery is diminutive. Basilar artery is patent. No occl usions, or aneurysms. IMPRESSION: There are multifocal possible lesions, both in the anterior circulation and in the posterior circulat ion. This would be quite rare for a 28-year-old patient. These findings more likely represent artifac t. Comment: Recommend CTA of the head to evaluate probable artifact versus multifocal stenotic disease. In this age group, a stenotic disease is present, it would most likely be secondary to vasculitis. Reviewed by: Shaun Fernandez MD on 10/06/2023 5:14 PM PDT Approved by: Shaun Fernandez MD on 10/06/2023 5:14 PM PDT Station ID: [id number]
== END 2023-10-04 12:49 | disposition home or self-care (01) ==
LOC: DI 12:48
PROVIDERS: ATTEND Specialist
DX: G93.2 Benign intracranial hypertension (principal)

== ENCOUNTER 2023-10-25 07:25 | Outpatient (CLI) | payer OTHER ==
--- NOTE | 2023-10-27 12:47 | MRI Report ---
PROCEDURE: MRV Brain WO INDICATIONS: IDIOPATHIC INTACRANIAL HYPERTENSION TECHNIQUE: Sagittal T1 spin echo through the brain. Coronal 2D grqg-su-yaanac MR venogram, with 3-dimensional m wrdtzf-nsicxkzyv-hiqtizbill (MIP) reformats of the intracranial veins then performed. COMPARISON: Correlation is made with prior mammogram, 10/04/2023. Correlation is also made with prior head CT, 09/30/2022. FINDINGS: Image quality: Excellent. Veins: Sagittal, straight, transverse, and sigmoid sinuses all appear patent. The lateral transvers e sinuses are mildly flattened. Brain: Limited images through the brain parenchyma show no intracranial bleeds or mass effects. IMPRESSION: Mildly flattened lateral transverse sinuses, which is commonly observed in patients with a pathologic intracranial hypertension. Reviewed by: Gutierrez Richardson MD on 10/27/2023 11:46 AM THIERRY Approved by: Gutierrez Richardson MD on 10/27/2023 11:46 AM THIERRY Station ID: [id number]
== END 2023-10-25 07:26 | disposition home or self-care (01) ==
LOC: DI 07:25
PROVIDERS: ATTEND Specialist
DX: G93.2 Benign intracranial hypertension (principal)

== ENCOUNTER 2023-11-27 08:00 | Outpatient (CLI) | payer OTHER ==
[2023-11-27 22:03] LABS: BACTERIAL VAGINOSIS DNA NEGATIVE (NEGATIVE); CANDIDA GLABRATA DNA POSITIVE (NEGATIVE); CANDIDA GROUP DNA NEGATIVE (NEGATIVE); CANDIDA KRUSEI DNA NEGATIVE (NEGATIVE); TRICHOMONAS VAGINALIS DNA NEGATIVE (NEGATIVE)
== END 2023-11-27 23:59 | disposition home or self-care (01) ==
LOC: LAB.WC 08:00
PROVIDERS: ATTEND Nurse Practitioner
DX: B37.31 Acute candidiasis of vulva and vagina (principal)
CPT/HCPCS: 81514

== ENCOUNTER 2024-02-26 16:04 | Emergency (ER) | payer OTHER ==
[2024-02-26 16:29] VITALS: O2SAT 100
[2024-02-26 16:40] LABS: BASOPHILS % (AUTO) 0.3 %; EOSINOPHILS # (AUTO) 0.7 10^3/uL (0.0-0.7); EOSINOPHILS % (AUTO) 5.3 %; HCT - HEMATOCRIT 43.2 % (37.0-47.0); HGB - HEMOGLOBIN 14.8 g/dL (12.0-16.0); LYMPHOCYTES # (AUTO) 3.1 10^3/uL (1.5-3.5); LYMPHOCYTES % (AUTO) 23.7 %; MEAN CORPUSCULAR HEMOGLOBIN 28.9 pg (27.0-31.0); MEAN CORPUSCULAR HGB CONC 34.3 g/dL (32.0-36.0); MEAN CORPUSCULAR VOLUME 84.4 fL (81.0-99.0); MEAN PLATELET VOLUME 10.9 fL (7.9-10.8); MONOCYTES # (AUTO) 0.8 10^3/uL (0.0-1.0); NEUTROPHILS # (AUTO) 8.4 10^3/uL (1.5-6.6); NEUTROPHILS % (AUTO) 64.1 %; PLT - PLATELET COUNT 211 10^3/uL (130-450); RED BLOOD COUNT 5.12 10^6/uL (4.20-5.40); RED CELL DISTRIBUTION WIDTH 12.9 % (12.0-15.0); WHITE BLOOD COUNT 13.1 x10^3/uL (4.8-10.8)
[2024-02-26 16:54] LABS: ALBUMIN 4.7 g/dL (3.2-5.5); ALBUMIN/GLOBULIN RATIO 1.7 (1.0-2.2); ALKALINE PHOSPHATASE 59 IU/L (42-121); ALT ALANINE AMINOTRANSFERASE 53 IU/L (10-60); AST ASPARTATE AMINOTRANSFERASE 26 IU/L (10-42); BILIRUBIN,TOTAL 0.4 mg/dL (0.2-1.0); BUN - BLOOD UREA NITROGEN 19 mg/dL (6-20); CALCIUM 9.7 mg/dL (8.5-10.3); CARBON DIOXIDE - CO2 19 mmol/L (21-32); CHLORIDE 109 mmol/L (101-111); CREATININE 0.7 mg/dL (0.6-1.3); GFR - MDRD 100 (>89); GLUCOSE 92 mg/dL (74-104); LIPASE 15 U/L (11-82); POTASSIUM 3.7 mmol/L (3.5-4.5); SODIUM 137 mmol/L (135-145); TOTAL PROTEIN 7.4 g/dL (6.4-8.9)
[2024-02-26 17:00] LABS: TROPONIN I HIGH SENSITIVITY < 2.3 ng/L (2.3-14.8)
--- NOTE | 2024-02-26 17:08 | XRAY Report ---
PROCEDURE: Chest 1V INDICATIONS: Chest pain TECHNIQUE: One view of the chest was acquired. COMPARISON: Chest radiograph 09/20/2021 FINDINGS: Surgical changes and devices: None. Lungs and pleura: No pleural effusions or pneumothorax. Lungs are clear. Mediastinum: Mediastinal contours appear normal. Heart size is normal. Bones and chest wall: No suspicious bony lesions. Overlying soft tissues appear unremarkable. IMPRESSION: No acute cardiopulmonary process. Reviewed by: Sara Vergara MD, PhD on 02/26/2024 5:07 PM PDT Approved by: Sara Vergara MD, PhD on 02/26/2024 5:07 PM PDT Station ID: [id number]
[2024-02-26 17:37] VITALS: BP 135/90
--- NOTE | 2024-02-26 18:04 | ED Physician Documentation ---
History of Present Illness - Stated complaint Stated Complaint: SOA - Chief complaint Chief Complaint: Cardiac - Additonal information Additional information: 29-year-old female with recent diagnosis from over a year ago idiopathic intracranial hypertension. She is supposed to be on acetazolamide 4 times a day for this and has taken herself off of this about 4 days ago. About 3 days ago she started experiencing shortness of breath extreme fatigue mild nausea no vomiting but with any minimal exertional activity or movement patient starts to feel like she is having a hard time catching her breath. She was not told to go off of her acetazolamide but she says that given that her symptoms have felt so much better she decided to take herself off of acetazolamide to see how she was feeling and no recurrent headaches but is experiencing severe increase generalized fatigue. She is not any control or hormones no recent long travel. PD PAST MEDICAL HISTORY - Past Medical History Past Medical History: Yes Cardiovascular: None Respiratory: None Neuro: Other Endocrine/Autoimmune: None Psych: Anxiety Other Past Medical History: Idiopathic intracranial hypertension - Past Surgical History Past Surgical History: No - Present Medications Home Medications: Ambulatory Orders Medication Instructions Recorded Confirmed acetaZOLAMIDE [Acetazolamide] 125 mg PO BID #60 tablet 09/30/22 04/28/23 - Allergies Allergies/Adverse Reactions: Allergies Allergy/AdvReac Type Severity Reaction Status Date / Time No Known Drug Allergies Allergy Verified 02/26/24 16:07 - Social History Does the pt smoke?: No Smoking Status: Never smoker Does the pt drink ETOH?: No Does the pt have substance abuse?: No - Immunizations Immunizations are current?: No - POLST Patient has POLST: No PD ED PE NORMAL - Vitals Vital signs reviewed: Yes - General General: Alert and oriented X 3, No acute distress, Well developed/nourished - HEENT HEENT: Atraumatic, PERRL, EOMI - Cardiac Cardiac: RRR, No murmur, No gallop, Strong equal pulses - Respiratory Respiratory: No respiratory distress, Clear bilaterally - Abdomen Abdomen: Normal bowel sounds, Soft, Non tender, No organomegaly - Extremities Extremities: No edema, No calf tenderness / cord Results - Vitals Vitals: Vital Signs - 24 hr 02/26/24 02/26/24 16:07 17:26 Temperature 36.5 C Heart Rate 79 79 Respiratory 16 Rate Blood Pressure 149/85 H 135/90 H O2 Saturation 100 100 Oxygen O2 Source Room air - EKG (time done) 1617 EKG releavant findings:: EKG personally interpreted by author of this note. Relevant findings are: Rate: Rate (enter#) (79) Rhythm: NSR [place]: Normal Intervals: Normal [place] QRS: Normal Ischemia: Normal ST segments Compare to prior EKG: Unchanged from prior EKG Computer interpretation: Agree with computer - Labs Labs: Laboratory Tests 02/26/24 02/26/24 02/26/24 16:34 16:34 16:34 WBC 13.1 H RBC 5.12 Hgb 14.8 Hct 43.2 MCV 84.4 MCH 28.9 MCHC 34.3 RDW 12.9 Plt Count 211 MPV 10.9 H Neut # (Auto) 8.4 H Lymph # (Auto) 3.1 [place] # (Auto) 0.8 Eos # (Auto) 0.7 Baso # (Auto) 0.0 Absolute Nucleated RBC 0.00 Nucleated RBC % 0.0 D-Dimer < 200.0 L Sodium 137 Potassium 3.7 Chloride 109 Carbon Dioxide 19 L Anion Gap 9.0 BUN 19 Creatinine 0.7 Estimated GFR (MDRD) 100 Glucose 92 Calcium 9.7 Total Bilirubin 0.4 AST 26 ALT 53 Alkaline Phosphatase 59 Troponin I High Sens < 2.3 L Total Protein 7.4 Albumin 4.7 Globulin 2.7 Albumin/Globulin Ratio 1.7 Lipase 15 - Rads (name of study) Chest Xray Relevant Findings:: Final report received, EMP independent interpretation of test, Other (no cardiopulmomary abnormalities) PD Medical Decision Making - ED course ED course: 29-year-old female presents emergency department for 3 days of shortness of breath differentials to consider but not limited to pneumonia, pulmonary embolis m, fluid volume overload, side effect of sudden discontinuation of acetazolamide outside of advice from her neuro-patient registration clerk. Labs are complete for further evaluation she does have mild leukocytosis, WBC 13.1 her D-dimer is found to be within normal limits making me less suspicious or concern for possible pulmonary embolism no other electrolyte abnormalities and normal troponin. Chest x-ray does not reveal any acute cardiopulmonary abnormalities or findings. Patient was informed that she needs to start taking her acetazolamide and follow-up with her neuro-patient registration clerk for further ev aluation of 1 and if she should discontinue this medication and a tapering plan as sudden discontinuation of this medication can cause seizures. She has been on this medication for about a year now. She says that she is able to get a hold of him and will send them a message tonight as well as call them tomorrow for further evaluation. All questions answered patient safe for discharge at this time. Departure - Departure Disposition: 01 Home, Self Care Clinical Impression: Shortness of breath, Prescription medication discontinued Instructions: ED Dyspnea Shortness of Breath Comments: Thank you for trusting us with your care. We have completed EKG, chest x-ray as well as labs and we are not seeing any acute abnormalities or findings at this point in time. I would strongly consider starting your acetazolamide again tonight and start taking this as prescribed until you are able to get in with your neuro-patient registration clerk as this is not a medication that is encouraged to be discontinued suddenly or abruptly. Please do not hesitate to return to the emergency department for any worsening symptoms and prioritize your neuro- ophthalmology appointment on Friday. Forms: PCP List Discharge Date/Time: 02/26/24 18:28
== END 2024-02-26 18:28 | disposition home or self-care (01) ==
LOC: ED 16:04
DX: R06.02 Shortness of breath (principal); D72.829 Elevated white blood cell count, unspecified
CPT/HCPCS: 36415; 80053; 83690; 84484; 85025; 85379; 93005; 99283; 99284